=== PATIENT | female | born 1945 | race Caucasian/White ===

== ENCOUNTER 2016-08-20 15:27 | Inpatient (IN) | payer MEDICARE ==
[~2016-08-20] VITALS: Ht 160 cm; Wt 63.8 kg
[2016-08-20] MEDS ORDERED: BACTRIM DS TABL1 TAB PO (15:59)
[2016-08-20] MEDS ORDERED: OXYBUTYNIN15 MG/BOTT PO (15:59)
[2016-08-20] MEDS ORDERED: LOPRESSOR25 MG PO (16:00)
[2016-08-20 16:54] LABS: BASOPHILS 0.2 % (0.0-2.0); EOSINOPHILS 0.2 % (0-7); HEMOGLOBIN 10.9 g/dL (12-16); IMMATURE GRANULOCYTES 2.4 % (0-5); LYMPHOCYTES 9.8 % (15-50); MCH 29.5 pg (26.0-34.0); MCHC 32.1 g/dL (31.0-37.0); MCV 92.1 fL (80.0-100.0); MEAN PLATELET VOLUME 8.8 fL (7.4-10.4); MONOCYTES 1.6 % (2-11); NEUTROPHILS 85.8 % (40-80); RBC 3.69 10x6/uL (4.00-5.40); RDW 14.3 % (11.5-14.5)
[2016-08-20 17:03] LABS: PLATELET COUNT 344 10x3/uL (130-400)
[2016-08-20 17:36] LABS: ALBUMIN 3.5 g/dL (3.4-5.0); ANION GAP 17.8 mmol/L (8-16); BILIRUBIN - TOTAL 0.17 mg/dL (0.2-1.3); CALCIUM 10.6 mg/dL (8.5-10.1); CARBON DIOXIDE 22.4 mmol/L (21.0-32.0); CREATININE - SERUM 3.4 mg/dL (0.6-1.3); PROTEIN - SERUM 7.6 g/dL (6.4-8.2)
[2016-08-20 17:39] LABS: POTASSIUM - SERUM 7.2 mmol/L (3.5-5.1)
--- NOTE | 2016-08-20 17:57 | NUR ---
RECEIVED [facility] OF [facility] 30GM FROM DR. MOHAN FOR K+ LEVEL OF 7.2. WILL CONTINUE TO [facility].
--- NOTE | 2016-08-20 19:30 | NUR ---
ASSESSMENT COMPLETE, DENIES NEEDS AT THIS TIME. HOB UP SR UP X2, C/L IN REACH. RT ARM IV SITE W/O R/SNOTED.ALERT AND ORIENTED X3, RESP UNLAB . NOT WEARING SCDS AT THIS TIME. CONTINUE TO MONITOR.
[2016-08-20 19:56] VITALS: BP 148/79
[2016-08-20 22:29] LABS: APPEARANCE HAZY (CLEAR); COLOR YELLOW (YELLOW)
[2016-08-20 22:30] LABS: BILIRUBIN NEGATIVE (NEGATIVE); GLUCOSE NEGATIVE (NEGATIVE); KETONE NEGATIVE (NEGATIVE); LEUKOCYTE ESTERASE 2+ (NEGATIVE); NITRITE NEGATIVE (NEGATIVE); PROTEIN TRACE mg/dL (NEGATIVE); UROBILINOGEN NORMAL (NORMAL)
[2016-08-20 22:32] LABS: EPITHELIAL CELLS 0-5 /hpf (0-5)
[2016-08-20 22:33] LABS: BACTERIA FEW /hpf (NONE SEEN); WHITE CELLS - URINE 25-50 /hpf (0-5)
[2016-08-21 01:31] VITALS: BP 142/76
[2016-08-21 04:40] VITALS: BP 116/58
[2016-08-21 07:42] LABS: ALBUMIN 3.1 g/dL (3.4-5.0); ANION GAP 14.4 mmol/L (8-16); BILIRUBIN - TOTAL 0.2 mg/dL (0.2-1.3); CALCIUM 9.5 mg/dL (8.5-10.1); CARBON DIOXIDE 23.2 mmol/L (21.0-32.0); CREATININE - SERUM 3.2 mg/dL (0.6-1.3); POTASSIUM - SERUM 4.6 mmol/L (3.5-5.1); PROTEIN - SERUM 7.6 g/dL (6.4-8.2)
[2016-08-21 08:22] VITALS: BP 156/65
--- NOTE | 2016-08-21 09:27 | NUR ---
PT IS ALERT. ASSESSMENT DONE PER FLOWSHEET. NO OTHER NEEDS AT THIS TIME. WILL CONTINUE TO MONTIOR.
[2016-08-21 10:44] VITALS: Ht 160 cm; Wt 63.8 kg
[2016-08-21 11:00] VITALS: BP 158/74
--- NOTE | 2016-08-21 12:46 | NUR ---
NO SS OF DISTRESS AT THIS TIME. WILL CONTINUE TO MONITOR.
--- NOTE | 2016-08-21 15:16 | NUR ---
Patient Name: TONYA LEON Admission Status: Elective Accout number: [id number] Admission Date: 08-20-2016 : 1945 Admission Diagnosis: Attending: VITALIY Current LOS: 1 Anticipated DC Date: Planned Disposition: Home Primary Insurance: MEDICARE A & B Discharge Planning Comments: * Is the patient Alert and Oriented? Yes 0 * How many steps to enter\exit or inside your home? ELEVATOR 0 * PCP DR. MOHAN 0 * Pharmacy [facility] 0 * Preadmission Environment Home Alone 0 * ADLs Independent 0 * Equipment None 0 * Other Equipment NO MEDICAL EQUIPMENT PROVIDER PREFERENCE 0 * List name and contact numbers for known caregivers / representatives who currently or will assist patient after discharge: BARRY BARKER, FRIEND WHO PT CONSIDERS TO BE HER MOTHER, 0 * Community resources currently utilized None 0 * Please name any agencies selected above. NONE 0 * Additional services required to return to the preadmission environment? No 0 * Can the patient safely return to the preadmission environment? Yes 0 * Has this patient been hospitalized within the prior 30 days at any hospital? No 0 CM MET WITH PT IN ROOM TO DISCUSS DISCHARGE PLANNING AND NEEDS. PT REPORTS LIVING AT HOME INDEPENDENTLY AND ALONE. PT HAS NO MEDICAL EQUIPMENT AND NO OUTSIDE SERVICES ASSISTING IN THE HOME. PT NORMALLY USES [employer] FOR MEDICAL APPOINTMENTS. CM DISCUSSED AVAILABILITY OF HOME HEALTH, REHAB SERVICES AND MEDICAL EQUIPMENT. PT DENIES DISCHARGE NEEDS, REPORTS SHE DOES NOT WANT CM TO CALL [facility] FOR DISCHARGE HOME AND WILL TAKE A TAXI HOME AT DISCHARGE HOME. Director Prison: Brennon Warner
--- NOTE | 2016-08-21 15:28 | NUR ---
PT RETAINING OVER 150 CC'S OF URINE PER BLADDER SCAN. PRO PLACED PER DR LAYNE WILL CONTINUE TO MONITOR.
[2016-08-21 15:59] LABS: CREATININE - URINE 30.2 mg/dL (30-125); POTASSIUM - URINE 8.6 MMOL/L (12.0-62.0); PRO/CRE RATIO URINE 1.9 mg/g; PROTEIN - URINE 58.5 mg/dL (0.0-11.9)
[2016-08-21 16:00] VITALS: BP 164/73
[2016-08-21 19:41] VITALS: BP 145/68
--- NOTE | 2016-08-21 23:45 | NUR ---
PATIENT SITTING UP IN BED. ALERT AND ORIENTED. I.V. PATENT, PRO CATHETER IN PLACE. ASSESSMENT COMPLETED PERFLOW SHEET. BED IN LOW POSITION, CALL LIGHT WITHIN REACH. CONTINUE TO MONITOR
[2016-08-22] VITALS (9 sets, daily range): BP systolic 138–189; BP diastolic 66–83
[2016-08-22 04:17] LABS: ANION GAP 11.4 mmol/L (8-16); CALCIUM 8.7 mg/dL (8.5-10.1); CARBON DIOXIDE 23.7 mmol/L (21.0-32.0); CREATININE - SERUM 2.6 mg/dL (0.6-1.3); POTASSIUM - SERUM 5.1 mmol/L (3.5-5.1)
--- NOTE | 2016-08-22 07:00 | NUR ---
Pt. was received at the beginning of this shift in bed awake and oriented x 3. Denied any needs and/or concerns. Vital signs: Temp. 97.7, pulse 68, resp. 18, b/p 164/83, 02Sat. 98%. Pt. has a weir catheter that is patent and draining yellow urine. Rt. side of chest infusaport with NS going per pump at 100cc's/hr. Stable condition observed. Will be monitoring frequently and assisting prn with adl's. Call light is in reach.
--- NOTE | 2016-08-22 12:00 | NUR ---
Pt. continues to be stable. New order received for US of the Kidneys. No complaints to staff. Will continue to monitor.
--- NOTE | 2016-08-22 17:18 | NUR ---
Pt is sitting practically in the dark with a dim light on. She prefers to eat her supper like this and doesn't want any lights turned on. No signs of any discomfort or distress. IV fluid infusing through rt. infusaport via pump at prescribed rate of flow with no difficulty. Continuing to monitor.
[2016-08-23 00:15] VITALS: BP 152/72
[2016-08-23 04:20] VITALS: BP 148/72
[2016-08-23 05:56] LABS: ANION GAP 15.1 mmol/L (8-16); CALCIUM 8.6 mg/dL (8.5-10.1); CARBON DIOXIDE 19.6 mmol/L (21.0-32.0); CREATININE - SERUM 2.2 mg/dL (0.6-1.3); POTASSIUM - SERUM 4.7 mmol/L (3.5-5.1)
--- NOTE | 2016-08-23 07:23 | NUR ---
RECEIVED PT REPORT. WILL CONTINUE PLAN OF CARE. NO OTHER NEEDS AT THIS TIME. WILL CONTINUE TO MONITOR.
[2016-08-23 08:39] VITALS: BP 167/86
--- NOTE | 2016-08-23 10:26 | NUR ---
PT IS ALERT. ASSESSMENT DONE PER FLOWSHEET. NO OTHER NEEDS AT THIS TIME. WILL CONTINUE TO MONTIOR.
[2016-08-23 12:22] VITALS: BP 169/75
--- NOTE | 2016-08-23 13:49 | NUR ---
NO SS OF DISTRESS WILL CONTINUE TO MONITOR.
--- NOTE | 2016-08-23 15:40 | NUR ---
REMOVED PRO PER ORDER OF DR. LAYNE
[2016-08-23 16:20] VITALS: BP 150/108
--- NOTE | 2016-08-23 19:25 | NUR ---
PT. IN BED LYING ON HER RIGHT SIDE WITH HOB UP FOR COMFORT AND IS WATCHING TV. PT. REQUESTING SOMETHING FOR THE NUMBNESS/TINGLING PAIN IN HER FEET. INFORMED PT. SHE COULD HAVE ES TYLENOL AND PT. AGREED. ASSESSMENT COMPLETED. PT. STATED SHE WAS GOING TO GET TO GO HOME IN THE MORNING. CALL LIGHT WITHIN REACH.
[2016-08-23 20:02] VITALS: BP 169/76
--- NOTE | 2016-08-23 22:02 | NUR ---
PT. IN BED WITH HOB UP FOR COMFORT AND IS WATCHING TV. NO VOICED NEEDS AT THIS TIME. IV INFUSING VIA PUMP WITHOUT ALARMS OF NS AT 100CC/HR. CALL LIGHT WITHIN REACH.
--- NOTE | 2016-08-24 00:06 | NUR ---
PT. IN BED WITH HOB UP FOR COMFORT LYING ON HER RIGHT SIDE WITH EYES CLOSED AND RESP. EVEN. IV OF NS AT 100/HR VIA PUMP TO RIGHT UPPER CHEST WALL INFUSAPORT WITHOUT ANY ALARMS. CALL LIGHT WITHIN REACH.
[2016-08-24 00:14] VITALS: BP 152/69
--- NOTE | 2016-08-24 02:02 | NUR ---
NEW IV FLUID BAG OF NS UP FOR INFUSION AT 100/HR VIA PUMP TO RIGHT INFUSAPORT SITE WITHOUT ANY PROBLEMS. PT. AWAKE AND DENIES ANY NEEDS AT THIS TIME. CALL LIGHT WITHIN REACH.
--- NOTE | 2016-08-24 04:04 | NUR ---
PT. IN BED WITH HOB UP FOR COMFORT ANY LYING ON HER LEFT SIDE WITH EYES CLOSED AND RESP. EVEN. IV OF NS VIA PUMP INFUSING VIA RIGHT CHEST WALL INFUSAPORT AT 100/HR WITHOIUT ANY ALARMS. CALL LIGHT WITHIN REACH.
[2016-08-24 04:13] VITALS: BP 171/87
[2016-08-24 06:24] LABS: ANION GAP 13.5 mmol/L (8-16); CALCIUM 8.6 mg/dL (8.5-10.1); CARBON DIOXIDE 21.4 mmol/L (21.0-32.0); CREATININE - SERUM 2.1 mg/dL (0.6-1.3); POTASSIUM - SERUM 4.9 mmol/L (3.5-5.1)
--- NOTE | 2016-08-24 06:58 | NUR ---
RECEIVED PT REPORT. WILL CONTINUE PLAN OF CARE. NO OTHER NEEDS AT THIS TIME. WILL CONTINUE TO MONITOR.
[2016-08-24 08:00] VITALS: BP 181/97
--- NOTE | 2016-08-24 10:35 | NUR ---
PT IS ALERT. ASSESSMENT DONE PER FLOWSHEET. NO OTHER NEEDS AT THIS TIME. WILL CONTINUE TO MONTIOR.
[2016-08-24 11:53] VITALS: BP 172/78
--- NOTE | 2016-08-24 12:46 | NUR ---
DC TEACHING COMPLETE. IV REMOVED FROM IP
== END 2016-08-24 12:46 | disposition home or self-care (01) | DRG 683 ==
LOC: D.M2 15:27
PROVIDERS: Internal Medicine; ADMIT Legal Medicine
DX: N17.9 Acute kidney failure, unspecified (principal); N39.0 Urinary tract infection, site not specified; C53.9 Malignant neoplasm of cervix uteri, unspecified; N13.30 Unspecified hydronephrosis; E87.5 Hyperkalemia; I12.9 Hypertensive chronic kidney disease with stage 1 through stage 4 chronic kidney disease, or unspecified chronic kidney disease; N18.9 Chronic kidney disease, unspecified; Z87.891 Personal history of nicotine dependence

== ENCOUNTER → 2016-10-21 09:42 | Outpatient (CLI) | payer MEDICARE ==
[2016-08-21 10:44] VITALS: BMI 24.0
[~2016-10-21 09:42] MED LIST: BACTRIM DS TABL1 TAB PO; LOPRESSOR25 MG PO; OXYBUTYNIN15 MG/BOTT PO
== END | disposition home or self-care (01) ==
LOC: D.CT 09:42
DX: C53.1 Malignant neoplasm of exocervix (principal)

== ENCOUNTER 2017-01-24 15:20 | Emergency (ER) | payer MEDICARE ==
[2016-08-21 10:44] VITALS: BMI 24.0
[2017-01-24 16:30] LABS: BASOPHILS 0.2 % (0-2); EOSINOPHILS 1.8 % (0-7); HEMATOCRIT 31.1 % (36.0-48.0); HEMOGLOBIN 10.1 g/dL (12-16); IMMATURE GRANULOCYTES 0.7 % (0-5); LYMPHOCYTES 9.8 % (15-50); MCH 28.7 pg (26.0-34.0); MCHC 32.5 g/dL (31.0-37.0); MCV 88.4 fL (80.0-100.0); MEAN PLATELET VOLUME 8.3 fL (7.4-10.4); MONOCYTES 7.8 % (2-11); NEUTROPHILS 79.7 % (40-80); PLATELET COUNT 411 10x3/uL (130-400); RBC 3.52 10x6/uL (4.00-5.40); RDW 13.9 % (11.5-14.5); WBC 14.7 10x3/uL (4.8-10.8)
[2017-01-24 16:46] LABS: ALBUMIN 3.5 g/dL (3.4-5.0); ANION GAP 16.6 mmol/L (8-16); BILIRUBIN - TOTAL 0.22 mg/dL (0.2-1.3); CALCIUM 10.9 mg/dL (8.5-10.1); CARBON DIOXIDE 22.8 mmol/L (21.0-32.0); CREATININE - SERUM 2.7 mg/dL (0.6-1.3); POTASSIUM - SERUM 4.4 mmol/L (3.5-5.1); PROTEIN - SERUM 8.8 g/dL (6.4-8.2)
[2017-01-24 17:03] LABS: COLOR RED (YELLOW)
[2017-01-24 17:04] LABS: APPEARANCE BLOODY (CLEAR); BILIRUBIN NEGATIVE (NEGATIVE); GLUCOSE NEGATIVE (NEGATIVE); KETONE NEGATIVE (NEGATIVE); LEUKOCYTE ESTERASE 2+ (NEGATIVE); NITRITE POSITIVE (NEGATIVE); PROTEIN 2+ mg/dL (NEGATIVE); SPECIFIC GRAVITY 1.015 (1.005-1.020); UROBILINOGEN NORMAL (NORMAL)
[2017-01-24 17:06] LABS: RED CELLS - URINE >50 /hpf (0-5); WHITE CELLS - URINE 0-5 /hpf (0-5)
[2017-01-24 17:07] LABS: BACTERIA FEW /hpf (NONE SEEN); EPITHELIAL CELLS 0-5 /hpf (0-5)
== END 2017-01-24 20:32 | disposition home or self-care (01) ==
LOC: D.ER 15:20
PROVIDERS: Emergency Medicine
DX: N39.0 Urinary tract infection, site not specified (principal); R30.0 Dysuria; R31.9 Hematuria, unspecified; N18.9 Chronic kidney disease, unspecified

== ENCOUNTER 2017-01-29 10:05 | Inpatient (IN) | payer MEDICARE, MEDICAID ==
[~2017-01-29] VITALS: Ht 160 cm; Wt 63.5 kg
[2017-01-29 10:57] LABS: ALBUMIN 3.3 g/dL (3.4-5.0); BILIRUBIN - TOTAL 0.25 mg/dL (0.2-1.3); CALCIUM 10.1 mg/dL (8.5-10.1); CARBON DIOXIDE 22.2 mmol/L (21.0-32.0); CREATININE - SERUM 2.5 mg/dL (0.6-1.3); POTASSIUM - SERUM 4.2 mmol/L (3.5-5.1); PROTEIN - SERUM 8.4 g/dL (6.4-8.2)
[2017-01-29 11:10] LABS: BASOPHILS 0.1 % (0-2); EOSINOPHILS 0.9 % (0-7); HEMATOCRIT 29.4 % (36.0-48.0); HEMOGLOBIN 9.5 g/dL (12-16); IMMATURE GRANULOCYTES 0.7 % (0-5); LYMPHOCYTES 7.5 % (15-50); MCH 28.1 pg (26.0-34.0); MCHC 32.3 g/dL (31.0-37.0); MEAN PLATELET VOLUME 8.3 fL (7.4-10.4); MONOCYTES 6.2 % (2-11); NEUTROPHILS 84.6 % (40-80); PLATELET COUNT 507 10x3/uL (130-400); RBC 3.38 10x6/uL (4.00-5.40); RDW 13.8 % (11.5-14.5)
[2017-01-29 11:52] LABS: APPEARANCE TURBID (CLEAR); BACTERIA FEW /hpf (NONE SEEN); BILIRUBIN NEGATIVE (NEGATIVE); COLOR RED (YELLOW); EPITHELIAL CELLS 0-5 /hpf (0-5); GLUCOSE NEGATIVE (NEGATIVE); KETONE NEGATIVE (NEGATIVE); LEUKOCYTE ESTERASE 2+ (NEGATIVE); MUCUS <1+ /lpf (NONE SEEN); NITRITE NEGATIVE (NEGATIVE); PROTEIN 2+ mg/dL (NEGATIVE); RED CELLS - URINE >50 /hpf (0-5); UROBILINOGEN NORMAL (NORMAL)
[2017-01-29] MEDS ORDERED: OXYBUTYNIN15 MG/BOTT PO (13:35)
[2017-01-29] MEDS ORDERED: BACTRIM DS TABL1 TAB PO (13:35)
[2017-01-29] MEDS ORDERED: LOPRESSOR25 MG PO (13:35)
[2017-01-29] MEDS ORDERED: FISH OIL 1,0001 CA1 PO (13:36)
[2017-01-29 15:45] VITALS: BP 166/82
[2017-01-29 16:35] VITALS: BP 166/66; BMI 24.8
[2017-01-29 20:00] VITALS: BP 136/73
[2017-01-30] VITALS: BP 141/71
--- NOTE | 2017-01-30 03:35 | NUR ---
ASSESSED AT THE BEGINNING OF THE SHIFT. PT IS ALERT AND ORIENTED, ABLE TO VERBALIZE NEEDS. SHE HAS BEEN VERY QUIET AND UP AD DUKE TO THE BATHROOM. NO COMPLAINTS HAVE BEEN VOICED OR DISTRESS NOTED. RESPIRATIONS ARE EASY AND NO COMPLAINTS HAVE BEEN VOICED. THE BED IS LOW, RAILS UP X'S 2 WITH THE CALL LIGHT AT HAND.
[2017-01-30 04:00] VITALS: BP 168/77
--- NOTE | 2017-01-30 07:15 | NUR ---
REPORT RECIEVED ASSUMED CARE. PATIENT IN BED WITH IV INTACT. NO COMPLAINTS. CALL LIGHT WITHIN REACH.
[2017-01-30 08:32] VITALS: BP 123/72
[2017-01-30 12:38] VITALS: BP 125/68
[2017-01-30 14:39] VITALS: Ht 160 cm; Wt 63.5 kg
[2017-01-30 16:12] VITALS: BP 104/59
--- NOTE | 2017-01-30 18:50 | NUR ---
PATIENT IN BED WITH IV INFUSING AT THIS TIME. NO COMPLAINTS. CALL LIGHT WITHIN REACH.
[2017-01-30 20:00] VITALS: BP 123/72
[2017-01-31] VITALS: BP 96/63
[2017-01-31 04:00] VITALS: BP 146/61
[2017-01-31 06:44] LABS: BASOPHILS 0.2 % (0-2); EOSINOPHILS 3.5 % (0-7); HEMOGLOBIN 7.9 g/dL (12-16); IMMATURE GRANULOCYTES 0.4 % (0-5); LYMPHOCYTES 8.7 % (15-50); MCH 28.6 pg (26.0-34.0); MCHC 32.9 g/dL (31.0-37.0); MEAN PLATELET VOLUME 8.2 fL (7.4-10.4); NEUTROPHILS 76.2 % (40-80); PLATELET COUNT 445 10x3/uL (130-400); RBC 2.76 10x6/uL (4.00-5.40); RDW 14.5 % (11.5-14.5)
--- NOTE | 2017-01-31 07:15 | NUR ---
REPORT RECIEVED, PT CARE ASSUMED. PT RESTING AT THIS TIME, NO COMPLAINTS. L AC IV INTACT. SIDE RAILS UP X 2, CALL LIGHT WITHIN REACH.
[2017-01-31 07:17] LABS: ALBUMIN 2.5 g/dL (3.4-5.0); ANION GAP 13.5 mmol/L (8-16); BILIRUBIN - TOTAL 0.22 mg/dL (0.2-1.3); CALCIUM 9.1 mg/dL (8.5-10.1); CARBON DIOXIDE 23.6 mmol/L (21.0-32.0); CREATININE - SERUM 2.3 mg/dL (0.6-1.3); POTASSIUM - SERUM 4.1 mmol/L (3.5-5.1); PROTEIN - SERUM 6.7 g/dL (6.4-8.2)
[2017-01-31 07:48] VITALS: BP 112/67
--- NOTE | 2017-01-31 09:36 | NUR ---
PT L AC IV CAME OUT, CATHETER IN TACT. RE-SITED TO R FOREARM X 2 STICKS. PT TOLERATED WITH MINIMAL AMOUNT OF PAIN. PATENT, IV FLUIDS RESTARTED. CALL LIGHT WITHIN REACH.
[2017-01-31 11:47] VITALS: BP 119/50
--- NOTE | 2017-01-31 15:15 | NUR ---
BLOOD TRANSFUSION STARTED AT THIS TIME. IV INTACT. VITAL SIGNS STABLE. PT HAS NO COMPLAINTS OR PROBLEMS NOTED. CALL LIGHT WITHIN REACH. WILL MONITOR FOR 15 MINUTES.
--- NOTE | 2017-01-31 15:30 | NUR ---
PT TOLERATING BLOOD TRANSFUSION. VITAL SIGNS STABLE. NO SIGNS OF RASH, FEVER OR CHANGE IN VITAL SIGNS. IV INTACT. CALL LIGHT WITHIN REACH. WILL CONTINUE TO MONITOR.
--- NOTE | 2017-01-31 17:40 | NUR ---
1 UNIT PRBC TRANSFUSED. VITALS STABLE. PT TOLERATED WELL. IV INTACT. CALL LIGHT WITHIN REACH.
--- NOTE | 2017-01-31 18:00 | NUR ---
IN ROOM WITH PT. 2ND UNIT PRBC TRANSFUSING AT THIS TIME. IV IN TACT. PT TOLERATING WELL. WILL MONITOR FOR 15 MINUTES.
--- NOTE | 2017-01-31 18:32 | NUR ---
PT TOLERATING BLOOD TRANSFUION, NO COMPLAINTS AT THIS TIME. VITAL SIGNS STABLE. IV INTACT. CALL LIGHT WITHIN REACH.
--- NOTE | 2017-01-31 18:41 | NUR ---
ORDER FOR TYLENOL 500MG 1-2 PO Q6H PRN PAIN RECIEVED FROM [facility] PER DR. MOHAN. ORDERED.
--- NOTE | 2017-01-31 19:12 | NUR ---
PT TOLERATING BLOOD INFUSION. IV INTACT. PT C/O PAIN 4/10 IN LOWER BACK "FROM LAYING IN THIS BED." 1000MG TYLENOL GIVEN ORDERED. CALL LIGHT WITHIN REACH.
[2017-02-01 04:00] VITALS: BP 158/50
--- NOTE | 2017-02-01 07:20 | NUR ---
REPORT RECIEVED, CARE ASSUMED. PT DOING WELL, RESTING WITH NO COMPLAINTS. VITALS STABLE. CALL LIGHT WITHIN REACH.
[2017-02-01 08:06] VITALS: BP 105/48
--- NOTE | 2017-02-01 10:15 | NUR ---
PT RESTING IN ROOM. NO COMPLAINTS. IV INTACT, R INFUSAPORT. D5NS RUNNING AT 100ML/HR ORDERED. CALL LIGHT WITHIN REACH.
[2017-02-01 14:08] VITALS: BP 120/84
--- NOTE | 2017-02-01 17:33 | NUR ---
PT C/O PAIN IN LOWER BACK "FROM LAYING HERE IN THIS BED." PRN MORPHINE GIVEN ORDERED. PT RESTING IN ROOM. CALL LIGHT WITHIN REACH.
--- NOTE | 2017-02-01 18:28 | NUR ---
PT RESTING IN ROOM, WATCHING TV. IV INTACT, FLUIDS RUNNING ORDERED. NO COMPLAINTS AT THIS TIME. CALL LIGHT WITHIN REACH, BED LOW, SIDE RAILS UP X 2.
[2017-02-01 19:00] VITALS: BP 145/103
--- NOTE | 2017-02-01 19:30 | NUR ---
REC'D LYING IN BED. NO DISTRESS NOTED. DENIED PAIN AT THIS TIME. DENIED FURTHER NEEDS AT THIS TIME. WILL ADMIN PM/AM MEDS PRESCRIBED. INSTRUCTED TO CALL IF NEEDED ANYTHING. VERBALIZED UNDERSTANDING. BED LOW, LOCKED, CALL LIGHT IN REACH.
--- NOTE | 2017-02-01 22:30 | NUR ---
WAS GOING TO THE BATHROOM AND REPORTED BLOOD STARTED TO COME OUT. I CHECKED HER AND BLOOD WAS COMING FROM VAGINA, NO LACERATIONS OR CUTS, COMING FROM WITHIN. CLEAN HER AND ROOM UP. CALLED DR. KIMBERLEE SALAS RN. KALIA GONZALEZ APRN CALLED BACK AND STATED "IF THE EPISODE HAPPENS AGAIN TO GET A CBC IF NOT WAIT UNTIL THE AM CHECK" WILL CONT TO MONITOR THROUGHOUT NIGHT.
[2017-02-02] VITALS: BP 124/68
--- NOTE | 2017-02-02 01:21 | NUR ---
PT AWAKE; NO DISTRESS NOTED. WILL CONTINUE TO MONITOR.
[2017-02-02 04:00] VITALS: BP 128/69
--- NOTE | 2017-02-02 05:06 | NUR ---
RESTING WELL. HASNT HAD ANOTHER BLEEDING EPISODE SINCE EALIER IN THE NIGHT. NO DISTRESS NOTED. WILL CONT TO MONITOR. BED LOW, LOCKED, CALL LIGHT IN REACH.
--- NOTE | 2017-02-02 07:30 | NUR ---
RECIEVED PT DURING WALKING ROUNDS. PT RESTING IN BED WITH NO COMPLAINTS OF PAIN OR DISCOMFORT AT THIS TIME. ASSESSMENT DONE PER FLOWSHEET. BED IN LOW POSITION AND CALL LIGHT MARISAIN REACH. WILL CONTINUE TO MONITOR.
[2017-02-02 08:24] VITALS: BP 125/66
[2017-02-02 08:55] LABS: BASOPHILS 0.2 % (0-2); EOSINOPHILS 3.9 % (0-7); HEMATOCRIT 29.7 % (36.0-48.0); HEMOGLOBIN 9.7 g/dL (12-16); IMMATURE GRANULOCYTES 0.5 % (0-5); LYMPHOCYTES 8.7 % (15-50); MCH 28.9 pg (26.0-34.0); MCHC 32.7 g/dL (31.0-37.0); MCV 88.4 fL (80.0-100.0); MEAN PLATELET VOLUME 8.1 fL (7.4-10.4); NEUTROPHILS 75.7 % (40-80); PLATELET COUNT 385 10x3/uL (130-400); RBC 3.36 10x6/uL (4.00-5.40); RDW 15.1 % (11.5-14.5); WBC 13.1 10x3/uL (4.8-10.8)
[2017-02-02 09:24] LABS: ALBUMIN 2.3 g/dL (3.4-5.0); ANION GAP 14.3 mmol/L (8-16); BILIRUBIN - TOTAL 0.31 mg/dL (0.2-1.3); CALCIUM 8.7 mg/dL (8.5-10.1); CARBON DIOXIDE 22.3 mmol/L (21.0-32.0); POTASSIUM - SERUM 4.6 mmol/L (3.5-5.1)
--- NOTE | 2017-02-02 10:20 | NUR ---
RECEIVED TELEPHONE ORDERS FROM DR. MOHAN FOR A BUFFET SERVER CONSULT DUE TO VAGINAL BLEEDING. WILL PLACE ORDER AT THIS TIME. PT RESTING IN BED WITH NO COMPLAINTS OF PAIN, WILL CONTINUE TO MONITOR.
[2017-02-02 12:24] VITALS: BP 111/67
--- NOTE | 2017-02-02 13:50 | NUR ---
PORT DRESSING CHANGED BY LUKE PENA AT THIS TIME USING STERILE TECHNIQUE
--- NOTE | 2017-02-02 15:49 | NUR ---
Patient Name: TONYA LEON Admission Status: ER Accout number: [id number] Admission Date: 01-29-2017 : 1945 Admission Diagnosis:URINARY TRACT INFECTION, SITE NOT SPECIFIED Attending: VITALIY Current LOS: 4 Anticipated DC Date: 02-05-2017 Planned Disposition: Home Primary Insurance: [facility] Discharge Planning Comments: CM MET WITH PATIENT REGARDING D/C NEEDS AND PLANS. PATIENT STATED SHE LIVES ALONE BUT HAS SEVERAL FRIENDS IN [place]. PATIENTS FRIEND (AMADEO) WILL DRIVE HER HOME AT DISCHARGE. PATIENTS PCP IS DR. MOHAN AND PHARMACY IS [facility]. PATIENT STATED SHE IS INDEPENDENT AND HAS NO DME AT HOME. PATIENT REFUSED HOME HEALTH AT DISCHARGE AND HAS NO OTHER NEEDS AT THIS TIME FOR DISCHARGE. PCP DR[facility]IMBER[facility]E [facility]- [phone] AMADEO (FRIEND) [phone] Ob Scrub Tech: Michelle Hampton Is the patient Alert and Oriented? Yes 0 * How many steps to enter\exit or inside your home? ELEVATOR 0 * PCP DR. MOHAN 0 * Pharmacy [facility] 0 * Preadmission Environment Home Alone 0 * ADLs Independent 0 * Equipment None 0 * List name and contact numbers for known caregivers / representatives who currently or will assist patient after discharge: AMADEO RUSSELL (FRIEND) [phone] 0 * Community resources currently utilized None 0 * Additional services required to return to the preadmission environment? Yes 0 * Can the patient safely return to the preadmission environment? Yes 0 * Has this patient been hospitalized within the prior 30 days at any hospital? No 0 Grand Total: 0
--- NOTE | 2017-02-02 15:57 | NUR ---
NUTRITION MONITORING & EVAL CHART REVIEWED, PT VISIT. TOLERATING REG DIET, 10 TO 50% INTAKE RECENT MEALS. PT REPORTS IMPROVING PO INTAKE. WILL CONTINUE TO MONITOR INTAKE, HONOR FOOD PREFERENCES. RD FOLLOWING
[2017-02-02 16:13] VITALS: BP 168/80
[2017-02-02 19:00] VITALS: BP 161/78
--- NOTE | 2017-02-02 19:25 | NUR ---
RECIEVED SHIFT REPORT. PT IS LYING IN BED. ALERT AND ORIENTED AND ABLE TO VERBALIZE NEEDS. IV IS PATENT AND FLUIDS ARE RUNNING PER ORDER. PT IS AMBULATORY BUT WAS INSTRUCTED TO CALL FOR ANY ASSISTANCE NEEDED. PT STATES PAIN IS 2/10. NO NEEDS ARE VERBALIZED AT THIS TIME. WILL CONTINUE TO MONITOR. SIDE RAILS ARE UP X 2. BED IS IN LOWEST POSITION. CALL LIGHT IS WITHIN REACH.
--- NOTE | 2017-02-02 20:47 | NUR ---
SHIFT ASSESSMENT COMPLETED. PT C/O PAIN 09/12. ADMINISTERED PRESCRIBED PRN MORPHINE PER ORDER. DENIES FURTHER NEEDS. WILL MONITOR. SIDE RAILS X 2. BED LOW. CALL LIGHT IN REACH.
[2017-02-03] VITALS: BP 154/76
[2017-02-03 04:00] VITALS: BP 131/89
--- NOTE | 2017-02-03 07:15 | NUR ---
RECIEVED PT DURING WALKING ROUNDS. PT RESTING IN BED WITH NO COMPLAINTS OF PAIN OR DISCOMFORT AT THIS TIME. ASSESSMENT DONE PER FLOWSHEET. BED IN LOW POSITION AND CALL LIGHT WITHIN REACH. WILL CONTINUE TO MONITOR.
[2017-02-03 08:13] VITALS: BP 160/75
[2017-02-03] MEDS ORDERED: OXYBUTYNIN15 MG/BOTT PO (09:59)
[2017-02-03] MEDS ORDERED: BACTRIM DS TABL1 TAB PO (09:59)
[2017-02-03] MEDS ORDERED: FISH OIL 1,0001 CA1 PO (09:59)
--- NOTE | 2017-02-03 10:27 | NUR ---
PATIENT IS DISCHARGING HOME TODAY/FRIEND AMADEO DRIVING HER. PATIENT REFUSED HOME HEALTH AND DID NOT HAVE ANY OTHER NEEDS FOR DISCHARGE. D/C IMM SERVED AND SIGNED
--- NOTE | 2017-02-03 11:21 | NUR ---
DE-ACCESSED PORT PER PROCEDURE AT THIS TIME. PT TOLERATED WELL. DRESSING APPLIED.
[2017-02-03 11:35] VITALS: BP 154/79
--- NOTE | 2017-02-03 12:27 | NUR ---
PT DISCHARGED AT THIS TIME WITH A FRIEND.
== END 2017-02-03 12:28 | disposition home or self-care (01) | DRG 683 ==
LOC: D.ER 10:05 → D.MS 11:59
PROVIDERS: Emergency Medicine; ADMIT Legal Medicine
DX: N17.9 Acute kidney failure, unspecified (principal); E87.1 Hypo-osmolality and hyponatremia; R31.9 Hematuria, unspecified; D64.9 Anemia, unspecified; C54.9 Malignant neoplasm of corpus uteri, unspecified; N13.30 Unspecified hydronephrosis; N95.0 Postmenopausal bleeding; N10 Acute pyelonephritis; Z87.891 Personal history of nicotine dependence

== ENCOUNTER 2017-02-17 12:53 | Inpatient (IN) | payer MEDICARE, MEDICAID ==
[~2017-02-17] VITALS: Ht 160 cm; Wt 60.3 kg
--- NOTE | ~2017-02-17 | HEMODYNAMI ---
PATIENT:TONYA LEON MEDICAL RECORD: [id number] : 49 LOCATION: D.2220 ADMISSION DATE: 02/17/17 Generatedon:02/19/201710:41 Patient name: TONYA LEON Patient #: [id number] SSN: : 1945 Date of study: 02/19/2017 Page: Of Hemodynamic Procedure Report Patient Data Patient Demographics Procedure consent was obtained First Name: TONYA Gender: Female Last Name: CAROLYN : 1945 Patient #: [id number] Age: 71 year(s) Race: Unknown Additional ID: [id number] Contact details Address: [address] [place] [address] [address] State: [place] City: [facility] Zip code: [address] Admission Admission Data Admission Date: 02/17/2017 Admission Time: 12:53 Room #: D.2220 Procedure Procedure Types Cath Procedure Peripheral Cath Diagnostic Procedure Miscellaneous Procedure Description Procedure Date Procedure Date: 02/19/2017 Procedure Start Time: 9:10 Procedure Staff Name Function Pablo Junior RT Monitor Clem Eduardo MD Performing Physician Marianna Concepcion RT Scrub Francia Mcfadden RN Nurse Procedure Data Cath Procedure Fluoroscopy Diagnostic fluoroscopy Total fluoroscopy Time: time: 11.7 min 11.7 min Diagnostic fluoroscopy Total fluoroscopy dose: 158 dose: 158 mGy mGy Contrast Material Contrast Material Type Amount (ml) Isovue 300 45 Diagnostic catheters Device Type Used For End Catheter Placement Merit Impress KA2 5Fr 65CM catheter Procedure Medications Medication Administration Route Dosage Fentanyl I.V. 50 mcg Versed I.V. 1 mg Fentanyl I.V. 50 mcg Versed I.V. 1 mg Fentanyl I.V. 50 mcg Versed I.V. 1 mg Oxygen NC 3 l/min 0.9% NaCl I.V. Fentanyl I.V. 50 mcg Versed I.V. 1 mg unlisted medication I.V. 1 g Hemodynamics Rest Snapshots Pre Cath Intra NCS Post Cath Vital Signs Time Heart Resp SPO2 NIBP (mmHg) Rhythm Pain Sedation Rate (ipm) (%) Status Level (bpm) 8:53:40 108 15 97 184/143(168) NSR 7 (11) , 10(A) Very intense 8:56:30 96 14 100 190/104(151) NSR 7 (11) , 10(A) Very intense 9:01:30 94 15 100 Measuring NSR 7 (11) , 10(A) Very intense 9:02:04 98 17 99 182/102(149) NSR 7 (11) , 10(A) Very intense 9:06:29 84 14 100 166/89(138) NSR 7 (11) , 10(A) Very intense 9:10:49 85 15 100 164/88(132) NSR 7 (11) , 10(A) Very intense 9:15:50 87 14 100 168/85(133) NSR 6 (11) , 9(A) Intense 9:20:06 76 13 100 142/81(120) NSR 6 (11) , 9(A) Intense 9:24:22 79 13 100 137/79(105) NSR 3 (11) , 9(A) Tolerable 9:28:36 72 13 100 138/79(113) NSR 3 (11) , 9(A) Tolerable 9:32:52 75 14 100 145/72(118) NSR 0 (11) , 9(A) No pain 9:37:06 85 15 100 156/86(133) NSR 0 (11) , 9(A) No pain 9:41:28 78 15 100 141/74(116) NSR 0 (11) , 9(A) No pain 9:45:46 70 13 100 140/68(107) NSR 0 (11) , 9(A) No pain 9:49:56 81 16 159/90(121) NSR 0 (11) , 9(A) No pain 9:54:16 79 10 156/81(124) NSR 0 (11) , 9(A) No pain 9:58:38 73 12 137/73(111) NSR 0 (11) , 9(A) No pain 10:03:37 71 13 100 Measuring NSR 0 (11) , 9(A) No pain 10:03:52 13 100 159/79(129) NSR 0 (11) , 9(A) No pain 10:08:10 80 16 100 166/90(130) NSR 0 (11) , 9(A) No pain 10:12:30 82 13 100 166/90(134) NSR 0 (11) , 9(A) No pain 10:16:50 86 15 100 174/90(135) NSR 0 (11) , 9(A) No pain 10:21:14 91 13 100 177/89(141) NSR 0 (11) , 9(A) No pain 10:25:36 143 12 100 180/94(125) NSR 0 (11) , 9(A) No pain 10:29:36 No Cuff NSR 0 (11) , 9(A) No pain 10:33:36 No Cuff NSR 0 (11) , 9(A) No pain 10:37:35 No Cuff NSR 0 (11) , 9(A) No pain Medications Time Medication Route Dose Verified Delivered Reason Notes Effectivenes s by by 8:55:11 Oxygen NC 3 Francia Francia l/min Lesa Lesa RN RN 8:55:38 cefipime I.V. 1 g Francia Francia Lesa Lesa RN RN 8:55:51 0.9% NaCl I.V. KVO Farncia Francia Lesa Lesa RN RN 9:10:01 Fentanyl I.V. 50 Francia Francia for mcg Lesa Lesa sedation RN RN 9:10:12 Versed I.V. 1 mg Francia Francia for Lesa Lesa sedation RN RN 9:15:41 Fentanyl I.V. 50 Francia Francia for mcg Lesa Lesa sedation RN RN 9:15:55 Versed I.V. 1 mg Francia Francia for Lesa Lesa sedation RN RN 9:20:40 Fentanyl I.V. 50 Francia Francia for mcg Lesa Lesa sedation RN RN 9:30:50 Versed I.V. 1 mg Francia Francia for Lesa Lesa sedation RN RN 9:50:48 Fentanyl I.V. 50 Francia Francia for mcg Lesa Lesa sedation RN RN 9:50:55 Versed I.V. 1 mg Francia Francia for Lesa Lesa sedation RN forming acid dumper Log Time Note 8:39:21 Pablo Zapiendai RT (R) (CV) sent for patient. Start room use. 8:39:34 Time tracking: Regular hours 8:39:42 Plan of Care:Hemodynamics will remain stable., Cardiac rhythm will remain stable., Comfort level will be maintained., Respiratory function will remain adequate., Patient/ family verbilizes understanding of procedure., Procedure tolerated without complication., Recovers from procedure without complications.. 8:39:49 Patient received from Med/Surg to IR Alert and oriented. Tansferred to table in Prone position. 8:39:54 Warm blankets applied, and brigida hugger turned on for patient comfort. 8:39:56 Correct patient and procedure confirmed by team. 8:40:01 Signed procedure consent form obtained from patient. 8:40:05 Full Disclosure recording started 8:40:06 - 8:40:09 H&P Date Dictated: 02/19/2017 H&P Addendum completed by physician on day of procedure. (MUST COMPLETE FOR ALL OUTPATIENTS). 8:40:10 Pre-procedure instructions explained to patient. 8:40:11 Pre-op teaching completed and patient verbalized understanding. 8:40:13 Family unavailable. 8:40:15 Patient NPO since Midnight. 8:40:18 Is the patient allergic to Iodine/contrast media? No. 8:40:24 Is patient on blood thinner?No 8:40:26 Patient diabetic? No. 8:40:26 - 8:40:27 ----Pre-sedation anethsthesia assessment.---- 8:40:29 Previous problem with sedation/anesthesia? No ? 8:40:31 Snore? Yes 8:40:32 Sleep apnea? No 8:40:34 Deviated septum? No 8:40:35 Opens mouth fully? Yes 8:40:37 Sticks out tongue? Yes 8:40:42 Airway obstruction? No ? 8:40:49 Dentures? Yes partial out 8:40:51 - 8:41:02 Patient pain scale 0/10 no pain. 8:41:19 IV patent on arrival in port with 0.9% NaCl at KVO. 8:41:22 Sharps counted by scrub and verified by R.N. 8:41:23 Alarms reviewed by R. N. 8:48:41 Use device set IR Diagnostic 8:48:43 Sterile Angiographic Pack opened to sterile field. 8:48:44 Bag Decanter opened to sterile field. 8:51:10 ECG and BP/O2 sat monitors applied to patient. 8:51:10 Vital chart was started 8:51:12 Baseline sample Acquired. 8:51:13 Baseline sample Acquired. 8:55:11 Oxygen 3 l/min NC was administered by Francia Mcfadden RN; ; 8:55:38 cefipime 1 g I.V. was administered by Francia Mcfadden RN; ; 8:55:51 0.9% NaCl KVO I.V. was administered by Francia Mcfadden RN; ; 9:06:52 Physician arrived 9:06:53 --------ALL STOP TIME OUT------ 9:06:54 Final Timeout: patient, procedure, and site verified with staff and physician. All members of the team are in agreement. 9:07:02 Right abdomen site verified by team. 9:07:11 Left abdomen site verified by team. 9:07:16 Physical assessment completed. ASA score P 3 - A patient with severe systemic disease as per Pablo Junior RT (R) (CV). 9:07:20 Sedation plan: IV Moderate Sedation Versed, Fentanyl 9:10:01 Fentanyl 50 mcg I.V. was administered by Francia Mcfadden RN; for sedation; 9:10:12 Versed 1 mg I.V. was administered by Francia Mcfadden RN; for sedation; 9:10:39 Procedure started. 9:10:46 Local anesthetic to left flank area with Lidocaine 1% by Clem Eduardo MD.INITIAL ACCESS ONLY 9:15:41 Fentanyl 50 mcg I.V. was administered by Francia Mcfadden RN; for sedation; 9:15:55 Versed 1 mg I.V. was administered by Francia Mcfadden RN; for sedation; 9:16:22 KIT, INTRODUCER ACCUSTICK II W/C opened to sterile field. 9:16:23 BAG, DRAINAGE EMPTY 600ML W/GILL opened to sterile field. 9:16:23 BAG, DRAINAGE EMPTY 600ML W/GILL opened to sterile field. 9:16:24 CHIBA 20 X 15 needle opened to sterile field. 9:16:26 CHIBA 20 X 15 needle opened to sterile field. 9:20:40 Fentanyl 50 mcg I.V. was administered by Francia Mcfadden RN; for sedation; 9:23:44 Cook VITALULU .035 145 glide wire opened to sterile field. 9:26:22 A Expertcloud.de KA2 5Fr 65CM catheter was advanced over the wire and used for . 9:30:50 Versed 1 mg I.V. was administered by Francia Mcfadedn RN; for sedation; 9:33:14 DILATOR, VESSEL 10/20 opened to sterile field. 9:33:15 PEEL-A-WAY INTRODUCER 9FR. opened to sterile field. 9:33:22 [place] Sci 8FR.X 24CM Ureteral Stent opened to sterile field. 9:39:11 [place] Sci 8FR.X 24CM Ureteral Stent opened to sterile field. 9:39:19 PEEL-A-WAY INTRODUCER 9FR. opened to sterile field. 9:42:38 STOPCOCK 3-WAY LARGE BORE opened to sterile field. 9:42:38 STOPCOCK 3-WAY LARGE BORE opened to sterile field. 9:44:33 Cook CARLSON 180 guide wire opened to sterile field. 9:50:48 Fentanyl 50 mcg I.V. was administered by Francia Mcfadden RN; for sedation; 9:50:55 Versed 1 mg I.V. was administered by Francia Mcfadden RN; for sedation; 9:51:09 EV3 NITINOL .018 80CM guide wire opened to sterile field. 9:52:25 Local anesthetic to right flank area with Lidocaine 1% by Clem agarwal MD.ADDITIONAL ACCESS 9:59:05 [place] Sci 8FR.X 24CM Ureteral Stent opened to sterile field. 10:00:03 [place] Sci All Purpose 8Fr drainage catheter opened to sterile field. 10:00:04 [place] Sci All Purpose 8Fr drainage catheter opened to sterile field. 10:00:26 SUTURE ETHILON 2-0 BLK MONO FS opened to sterile field. 10:00:26 SUTURE ETHILON 2-0 BLK MONO FS opened to sterile field. 10:10:10 Procedure ended.(Physican Out) 10:11:23 Fluoroscopy time 11.70 minutes. 10:11:27 Fluoroscopy dose: 158 mGy 10:11:27 Flurop Dose total: 158 10:11:36 Contrast amount:Isovue 300 45ml. 10:11:38 Sharps counted by scrub and verified by R.N. 10:11:40 Insertion/operative site no bleeding no hematoma. 10:11:50 Post Abdominal area:stable 10:11:55 Post Abdominal area:stable 10:12:04 Post-procedure physical assessment completed. ASA score P 3 - A patient with severe systemic disease as per Clem Eduardo MD. 10:12:07 Post procedure rhythm: unchanged. 10:21:27 Post procedure instruction explained to patient.Patient verbalizes understanding. 10:21:29 Procedure and supply charges have been captured, reviewed, submitted an d are correct. 10:21:31 Report given to Med/Surg. 10:21:34 Patient transfered to Med/Surg with Bed. 10:41:07 Vital chart was stopped Device Usage Item Name Manufacture Quantity Catalog Hospital Part Current Minimal Lot# / Number Charge Number Stock Stock Serial# Code Naa Leiva 1 [id number] 5 Angiographic Health Pack Bag Decanter Microtek 1 [id number] [id number] 87523 286389 5 Medical Inc. KIT, [place] 1 [id number] 841633 973446 017389 5 INTRODUCER Scientific ACCUSTICK II W/C BAG, Merit 2 [id number] 070625 385529 080242 5 DRAINAGE Medical EMPTY 600ML W/GILL CHIBA 20 X [facility] 2 [id number] 697291 089203 5 [id number] 15 needle [id number] [facility] 1 L74397 003782 529852 5 [id number] ROADRUNNER .035 145 glide wire Merit Merit 1 [id number] 112357 991420 5 Impress KA2 Medical 5Fr 65CM catheter DILATOR, [facility] 1 [id number] 165105 96007 321785 5 [id number] VESSEL 04/24 PEEL-A-WAY [facility] 2 [id number] 749645 698904 832751 5 [id number] INTRODUCER [id number] 9FR. [place] Sci [place] 3 [id number] 218247 761379 305856 5 8FR.X 24CM Scientific Ureteral Stent STOPCOCK [facility] 2 M75014 101472 1515 960714 5 [id number] 3-WAY LARGE 6335613 BORE [facility] 1 U09516 593106 047016 5 [id number] 180 guide wire EV3 NITINOL Ev3 1 [id number] 878170 458139 5 .018 80CM guide wire [place] Sci [place] 2 [id number] 671751 171863 010535 5 All Purpose Scientific 8Fr drainage catheter SUTURE Ethicon 2 664H 366424 707506 5 ETHILON 2-0 BLK MONO FS Signature Audit [place] Stage Time Signature Unsigned Intra-Procedure 02/19/2017 Pablo 10:41:04 AM [place] RT (R) (CV) Signatures Monitor : Pablo Signature : [place] RT Date : Time : [facility] [address] [place] [address]
[~2017-02-17 12:53] MED LIST changes: +FISH OIL 1,0001 CA1 PO
--- NOTE | 2017-02-17 14:08 | NUR ---
RIGHT INFUSAPORT ACCESSED WITH 20GAX1 IN NEEDLE. ACCESSED EASILY-DOES NOT PULL BACK BLOOD-PT STATES NEVER HAS. FLUSHES EASILY. RAIL UP X 1 FOR SAFETY. CALL LIGHT IN REACH
[2017-02-17 17:22] VITALS: BP 127/66; BMI 23.6
[2017-02-17 18:37] LABS: APPEARANCE HAZY (CLEAR); BILIRUBIN NEGATIVE (NEGATIVE); GLUCOSE NEGATIVE (NEGATIVE); KETONE NEGATIVE (NEGATIVE); LEUKOCYTE ESTERASE 2+ (NEGATIVE); NITRITE NEGATIVE (NEGATIVE); PROTEIN 2+ mg/dL (NEGATIVE); SPECIFIC GRAVITY 1.015 (1.005-1.020); UROBILINOGEN NORMAL (NORMAL)
[2017-02-17 18:39] LABS: RED CELLS - URINE 0-5 /hpf (0-5); WHITE CELLS - URINE >50 /hpf (0-5)
[2017-02-17 18:41] LABS: BACTERIA FEW /hpf (NONE SEEN)
--- NOTE | 2017-02-17 19:30 | NUR ---
ENTERED ROOM WITH DR. LOVELACE PER HIS REQUEST WHILE HE PERFORMED EXAM. PATIENT REQUESTED PAIN MEDICATION. ASSURED THE PATIENT THAT I WOULD FIND OUT ABOUT HER PAIN MEDS AND ENCOURAGED HER TO CALL IF SHE HAS FURTHER NEEDS. BED IN LOWEST POSITION AND CALL LIGHT WITHIN REACH.
[2017-02-17 20:00] VITALS: BP 173/79
[2017-02-17 20:12] LABS: BASOPHILS 0.2 % (0-2); EOSINOPHILS 0.8 % (0-7); HEMATOCRIT 23.3 % (36.0-48.0); HEMOGLOBIN 7.6 g/dL (12-16); IMMATURE GRANULOCYTES 0.6 % (0-5); MCH 28.6 pg (26.0-34.0); MCHC 32.6 g/dL (31.0-37.0); MCV 87.6 fL (80.0-100.0); MONOCYTES 7.1 % (2-11); NEUTROPHILS 85.3 % (40-80); RBC 2.66 10x6/uL (4.00-5.40); RDW 14.7 % (11.5-14.5); WBC 16.1 10x3/uL (4.8-10.8)
[2017-02-17 20:13] LABS: PLATELET COUNT 531 10x3/uL (130-400)
[2017-02-17 20:21] LABS: ALBUMIN 2.7 g/dL (3.4-5.0); ANION GAP 12.9 mmol/L (8-16); BILIRUBIN - TOTAL 0.2 mg/dL (0.2-1.3); CALCIUM 11.5 mg/dL (8.5-10.1); CARBON DIOXIDE 24.9 mmol/L (21.0-32.0); POTASSIUM - SERUM 4.8 mmol/L (3.5-5.1); PROTEIN - SERUM 7.5 g/dL (6.4-8.2)
[2017-02-18] VITALS: BP 175/91
[2017-02-18 04:00] VITALS: BP 159/81
[2017-02-18] MEDS ORDERED: ULTRAM50 MG PO (04:52)
--- NOTE | 2017-02-18 07:50 | NUR ---
ASSESSMENT COMPLETE. R PORT PATENT. NS INFUSING AT 100 CC/HR VIA PUMP. NPO FOR PROCEDURE TODAY. COMPLAINING OF LOW BACK PAIN. DENIES ANY NEEDS AT THIS TIME.
[2017-02-18 08:53] VITALS: BP 157/80
--- NOTE | 2017-02-18 10:40 | NUR ---
OFF FLOOR TO OR VIA BED.
--- NOTE | 2017-02-18 12:00 | NUR ---
NOTIFIED BY DR GIRON THAT STENTS WERE UNABLE TO BE PLACED. SPOKE WITH RANDI IN SPECIALS. PATIENT WILL GO FOR NEPHROSTOMY TUBES LATER TODAY WHEN ABLE TO OBTAIN CONSENT.
[2017-02-18 12:38] VITALS: BP 147/88
--- NOTE | 2017-02-18 12:39 | NUR ---
RETURNED TO ROOM FROM RECOVERY ROOM. VSS. DROWSY BUT AWAKENS EASILY TO VERBAL STIMULI.
--- NOTE | 2017-02-18 12:50 | NUR ---
1ST UNIT PRBC INFUSION STARTED. VSS.
--- NOTE | 2017-02-18 13:14 | NUR ---
CM met with patient to assess discharge planning needs. Patient lives independently in the [facility]. Where she plans to return. She stated that her friend Carlin will be the one to drive her home at discharge. She has a shower bar in her shower,but that is all the DME items she has. She does not use HH and does not think she will need it at discharge. She states that her apartment is safe to return to. CM will contine to follow and assist as needed PCP: Eric Gonzalez on [address] ([phone])
[2017-02-18 14:38] VITALS: Ht 160 cm; Wt 60.3 kg
[2017-02-18 16:35] VITALS: BP 141/78
--- NOTE | 2017-02-18 16:40 | NUR ---
DR MOHAN HERE TO SEE PATIENT. 2ND UNIT PRBC INFUSION. VSS. DENIES ANY NEEDS AT THIS TIME.
--- NOTE | 2017-02-18 18:23 | NUR ---
RESTING QUIETLY IN BED AT THIS TIME. VSS. DENIES ANY NEEDS AT PRESENT.
--- NOTE | 2017-02-18 18:47 | OP ---
PATIENT NAME: TONYA LEON MEDICAL RECORD: [id number] :49 LOCATION:D.MS [id number] ADMISSION DATE:02/17/17 SURGEON: KEVON GIRON MD DATE OF OPERATION: 02/18/2017 SURGEON: Kevon Giron MD ANESTHESIA: General by Roman Pak CRNA. PREOPERATIVE DIAGNOSES: Cervical cancer with bilateral hydroureteronephrosis. PROCEDURES: Cystoscopy, bilateral ureteral stent removal, biopsy of the bladder. FINDINGS: Gross hematuria present. Multiple small white nodules present in the bladder. These were biopsied. Plastic ureteral stents in place. SPECIMENS: Ureteral stents times 2 and bladder biopsy. ESTIMATED BLOOD LOSS: Difficult to estimate. CLINICAL HISTORY: This is a 71-year-old female, who has a history of lymphoma as well as cervical cancer. The cervical cancer was treated 1 year ago with radiation and chemotherapy. In the interim, she was found to have bilateral ureteral obstruction and Dr. Leon about 2 months ago placed bilateral ureteral stents. In spite of that, her creatinine continues to decline. Her creatinine is 4.[address], she has bilateral hydroureteronephrosis due to obstruction of the distal ureters by pelvic masses. The intention today was to change her plastic stent placed by Dr. Leon to metal once that would resist compression. She also has hematuria, which has yet to be worked up. The cystoscopy will be part of the hematuria workup. The CT scan was done yesterday. SHE IS ALLERGIC TO PENICILLIN. She was given Levaquin 250 mg IV stone setter metal optical frames to the OR. DESCRIPTION OF PROCEDURE: The patient was given induction of general anesthesia. She was placed in the dorsal lithotomy position and prepped and draped. A 21-Kinyarwanda cystoscope with 30-degree lens was used for visualization. The urine was quite murky. We were able to see the stents and remove them entirely with grasping forceps one at a time. Looking in the bladder, we saw the bladder wall studded with white little nodules. I decided to use a cold cup biopsy forceps and biopsied 2 sites in the bladder. The biopsy sites were cauterized with the Bugbee electrode. However, at this point, there was so much bleeding in the bladder from the bladder wall, but I could not find the ureteral orifices. Therefore, the attempt to insert the ureteral stent was abandoned. I will contact interventional radiology for her to have nephrostomy tubes place bilaterally. TRANSINT:[id number] Voice Confirmation ID: [id number] DOCUMENT ID: [id number] OPERATIVE REPORT [id number] TONYA LEON ROBERT S MD at 1847 CC: [id number] DICTATION DATE: 02/18/17 1200 DYE BOARDING MACHINE OPERATOR: 02/18/17 1513 ADM IN [place] [id number] [place] [address]
[2017-02-18 19:00] VITALS: BP 155/78
--- NOTE | 2017-02-18 19:00 | NUR ---
2ND UNIT PRBC INFUSION COMPLETE. VSS.
--- NOTE | 2017-02-18 19:15 | NUR ---
BEDSIDE REPORT RECEIVED AND CARE OF PT ASSUMED. PT LYING IN SUPINE POSITION WITH EYES CLOSED AND UNLABORED BREATHING. RIGHT IP ACCESSED WITH NS INFUSING AT 100 ML / HR. WILL MONITOR [place] FOR NEEDS.
--- NOTE | 2017-02-18 21:03 | NUR ---
HS MEDICATIONS GIVEN. WILL CONTINUE TO MONITOR FOR NEEDS.
[2017-02-19] VITALS (10 sets, daily range): BP systolic 143–191; BP diastolic 65–104
--- NOTE | 2017-02-19 01:44 | NUR ---
GAVE TRAMADOL 50 MG PO FOR C/O ABDOMINAL PAIN.
--- NOTE | 2017-02-19 02:22 | NUR ---
PT CONTINUES TO HAVE PAIN, GETTING WORSE IN ABDOMEN. GAVE NORCO PER PRN ORDER. WILL CONTINUE TO MONITOR FOR NEEDS.
[2017-02-19 05:50] LABS: BASOPHILS 0.1 % (0-2); EOSINOPHILS 1.1 % (0-7); HEMATOCRIT 27.5 % (36.0-48.0); IMMATURE GRANULOCYTES 0.3 % (0-5); LYMPHOCYTES 4.4 % (15-50); MCH 28.5 pg (26.0-34.0); MCHC 33.8 g/dL (31.0-37.0); MEAN PLATELET VOLUME 8.3 fL (7.4-10.4); MONOCYTES 9.3 % (2-11); NEUTROPHILS 84.8 % (40-80); RDW 15.2 % (11.5-14.5); WBC 14.9 10x3/uL (4.8-10.8)
[2017-02-19 05:52] LABS: INR 1.12 (0.85-1.17); PROTIME 14.3 SECONDS (11.6-15.0)
[2017-02-19 05:54] LABS: HEMOGLOBIN 9.3 g/dL (12-16); MCV 84.4 fL (80.0-100.0); PLATELET COUNT 412 10x3/uL (130-400); RBC 3.26 10x6/uL (4.00-5.40)
[2017-02-19 06:17] LABS: ANION GAP 15.8 mmol/L (8-16); CALCIUM 9.6 mg/dL (8.5-10.1); POTASSIUM - SERUM 4.4 mmol/L (3.5-5.1)
[2017-02-19 06:18] LABS: CARBON DIOXIDE 17.6 mmol/L (21.0-32.0)
--- NOTE | 2017-02-19 07:35 | NUR ---
AWAKE AND ALERT AT THIS TIME. ALERT AND ORIENTED X4 AND C/O ABDOMINAL PRESSURE AND DISCOMFORT. CONSENT FORM REVIEWED WITH PT AND SHE DENIES QUESTIONS OR CONCERNS. CONSENT SIGNED BY PATIENT. ASSESSMENT PERFORMED PER FLOWSHEET. CALL LIGHT IN REACH, WILL CONTINUE WITH PLAN OF CARE.
--- NOTE | 2017-02-19 08:44 | NUR ---
TAKEN TO CT FOR PROCEDURE AT THIS TIME. WILL MONITOR PT WHEN SHE RETURNS.
--- NOTE | 2017-02-19 13:18 | NUR ---
PRN TRAMADOL ADMINISTERED AT THIS TIME FOR PAIN 10/13. ASSISTED PT WITH MEAL SET UP. REMAINS ON RENU ALARM FOR FALL PRECATIONS. CALL LIGHT IN REACH, WILL CONTINUE WITH PLAN OF CARE.
--- NOTE | 2017-02-19 15:28 | NUR ---
PRN NORCO-5 ADMINISTERED FOR PAIN AT THIS TIME. NEPHROSTOMY TUBES DRAINED AND MEASURED AT THIS TIME.
--- NOTE | 2017-02-19 19:00 | NUR ---
BEDSIDE REPORT RECEIVED AND CARE OF PT ASSUMED. PT LYING IN SEMI LEPE'S POSITION WITH EYES CLOSED. RIGHT IP ACCESSED WITH NS INFUSING AT 75 ML / HR. BILATERAL NEPHROSTOMY TUBES IN PLACE, WITH BLOODY URINE IN LEFT TUBE AND PINK TINGED URINE IN RIGHT. WILL MONITOR CLOSELY FOR NEEDS.
--- NOTE | 2017-02-19 20:00 | NUR ---
EMPTIED NEPHROSTOMY TUBES: 300 ML FROM RIGHT AND 50 ML FROM LEFT
--- NOTE | 2017-02-19 21:55 | NUR ---
HS MEDICATIONS GIVEN TO INCLUDE A TRAMADOL PO PER REQUEST FOR PAIN. WILL CONTINUE TO MONITOR FOR NEEDS.
--- NOTE | 2017-02-19 22:00 | NUR ---
EMPTIED NEPHROSTOMY TUBES: 200 MLS FROM RIGHT AND 25 MLS FROM LEFT.
--- NOTE | 2017-02-20 | NUR ---
EMPTIED NEPHROSTOMY BAGS: 225 MLS FROM RIGHT SIDE AND 100 MLS FROM LEFT SIDE.
[2017-02-20 04:00] VITALS: BP 144/71
--- NOTE | 2017-02-20 07:41 | NUR ---
REPORT RECEIVED FROM FOREIGN STUDENT ADVISER NURSE. CALL LIGHT IN REACH.
--- NOTE | 2017-02-20 09:05 | NUR ---
ASSESSMENT COMPLETED. DENIES NEEDS AT THIS TIME. CALL LIGHT IN REACH. WILL CONTINUE WITH PLAN OF CARE.
[2017-02-20 09:35] VITALS: BP 140/75
[2017-02-20 09:42] LABS: ANION GAP 15.9 mmol/L (8-16); CALCIUM 9.2 mg/dL (8.5-10.1); CARBON DIOXIDE 19.6 mmol/L (21.0-32.0); CREATININE - SERUM 3.7 mg/dL (0.6-1.3); POTASSIUM - SERUM 4.5 mmol/L (3.5-5.1)
--- NOTE | 2017-02-20 11:20 | NUR ---
RESTING WITH EYES CLOSED. RESP EVEN AND UNLABROED. CALL LIGHT IN REACH.
--- NOTE | 2017-02-20 12:01 | NUR ---
NORCO PO PER C/O PAIN OF 4. REFUSES TO GET TURNED EVERY 2 HOURS. CALL LIGHT IN REACH. BED ALARM ON.
[2017-02-20 12:46] VITALS: BP 143/72
--- NOTE | 2017-02-20 13:42 | NUR ---
Nutrition Follow Up: Pt stated that she has no appetite. She refused supplements at this time. Pt is eating 7% meal avg on a regular diet. Wt stable. No BM since admit. Labs and meds reviewed. Rec continue current diet. Rec consider an appetite stimulant. RD following.
--- NOTE | 2017-02-20 14:25 | NUR ---
BILATERAL NEPHROSTOMY TUBES FLUSHED WITH 10CC OF NS EACH.
--- NOTE | 2017-02-20 15:35 | NUR ---
RESTING QUIETLY IN BED. BILATERAL NEPHROSTOMY TUBES IN PLACE WITH CLEAR-EMERY URINE. DENIES NEEDS. REPORTS PAIN WELL MANAGED. DENIES NEEDS.
--- NOTE | 2017-02-20 16:22 | NUR ---
NO NEEDS VOICED AT THIS TIME. CALL LIGHT IN REACH.
[2017-02-20 16:29] VITALS: BP 135/75
--- NOTE | 2017-02-20 18:15 | NUR ---
NO CHANGES IN INITAL ASSESSMENT. CALL LIGHT IN REACH. WILL CONTINUE WITH PLAN OF CARE.
[2017-02-20 20:07] VITALS: BP 151/81
--- NOTE | 2017-02-20 22:17 | NUR ---
REC'D SITTING UP IN BED. ALERT AND ORIENTED X4. NO DISTRESS NOTED. EMPITED NEPHRO BAG 500ML OUT OF RIGHT SIDE. INSTRUCTED TO CALL IF NEEDED ANYTHING. VERBALIZED UNDERSTANDING. WILL ADMIN PM/AM MEDS PRESRCIBED. BED LOW, LOCKED, CALL LIGHT IN REACH.
[2017-02-20 23:50] VITALS: BP 148/74
[2017-02-21 03:58] VITALS: BP 156/84
--- NOTE | 2017-02-21 04:55 | NUR ---
PATIENT RESTING WITH EYES CLOSED AND NO VISIBLE SIGNS OF DISTRESS. BED IN LOWEST POSITION AND CALL LIGHT WITHIN REACH.
[2017-02-21 09:02] VITALS: BP 157/78
--- NOTE | 2017-02-21 10:00 | NUR ---
PATIENT IN RIGHT LATERAL POSITION RESTING QUIETLY WITH EYES CLOSED. RESPIRATIONS EVEN AND UNLABORED. SIDE RAILS UP X2. BED IN LOW POSITION. CALL LIGHT IN REACH.
[2017-02-21 12:44] VITALS: BP 142/66
--- NOTE | 2017-02-21 15:15 | NUR ---
PATIENT ALERT IN BED VISITING WITH GUEST. NO SIGNS OF DISTRESS NOTED. DENIES NEEDS. CALL LIGHT IN REACH.
[2017-02-21 15:36] VITALS: BP 158/81
--- NOTE | 2017-02-21 17:49 | NUR ---
RATES PAIN 4/10. NORCO GIVEN PER PRN ORDER. NO FURTHER NEEDS VOICED. SIDE RAILS UP X2. BED IN LOW POSITION. CALL LIGHT IN REACH.
[2017-02-21 19:00] VITALS: BP 138/66
--- NOTE | 2017-02-21 19:00 | NUR ---
BEDSIDE REPORT RECEIVED AND CARE OF PT ASSUMED. PT LYING IN LOW LEPE'S POSITION WATCHING TV. RIGHT IP ACCESSED WITH NS INFUSING AT 75 ML / HR. YELLOW URINE IN RIGHT NEPHROSTOMY BAG, NON IN LEFT BAG. WILL MONITOR [place] FOR NEEDS.
--- NOTE | 2017-02-21 21:05 | NUR ---
EMPTIED 400 ML OF YELLOW URINE FROM RIGHT NEPHROSTOMY BAG...LEFT BAG EMPTY.
--- NOTE | 2017-02-21 21:11 | NUR ---
HS MEDICATIONS GIVEN TO INCLUDE NORCO PER REQUEST FOR PAIN.
[2017-02-22] VITALS (7 sets, daily range): BP systolic 119–157; BP diastolic 64–78
--- NOTE | 2017-02-22 01:30 | NUR ---
EMPTIED 500 ML OF YELLOW URINE FROM RIGHT NEPHROSTOMY BAG...LEFT BAG REMAINS EMPTY.
[2017-02-22 06:03] LABS: BASOPHILS 0.1 % (0-2); EOSINOPHILS 3.8 % (0-7); HEMATOCRIT 28.4 % (36.0-48.0); HEMOGLOBIN 9.4 g/dL (12-16); LYMPHOCYTES 5.1 % (15-50); MCH 28.2 pg (26.0-34.0); MCHC 33.1 g/dL (31.0-37.0); MCV 85.3 fL (80.0-100.0); MEAN PLATELET VOLUME 8.2 fL (7.4-10.4); MONOCYTES 7.2 % (2-11); NEUTROPHILS 82.8 % (40-80); RBC 3.33 10x6/uL (4.00-5.40); RDW 14.9 % (11.5-14.5); WBC 15.4 10x3/uL (4.8-10.8)
[2017-02-22 06:07] LABS: PLATELET COUNT 328 10x3/uL (130-400)
[2017-02-22 06:36] LABS: ANION GAP 15.1 mmol/L (8-16); BILIRUBIN - TOTAL 0.23 mg/dL (0.2-1.3); CALCIUM 8.1 mg/dL (8.5-10.1); CARBON DIOXIDE 18.7 mmol/L (21.0-32.0); PROTEIN - SERUM 6.1 g/dL (6.4-8.2)
[2017-02-22 06:37] LABS: CREATININE - SERUM 2.5 mg/dL (0.6-1.3); POTASSIUM - SERUM 3.8 mmol/L (3.5-5.1)
--- NOTE | 2017-02-22 07:20 | NUR ---
PATIENT RECEIVED ALERT IN MID LEPE POSITION. RESPIRATIONS EVEN AND UNLABORED. DENIES NEEDS. SIDE RAILS UP X2. BED IN LOW POSITION. CALL LIGHT IN REACH.
--- NOTE | 2017-02-22 09:24 | NUR ---
ALERT IN BED. NO SIGNS OF DISTRESS NOTED. RATES PAIN 09/12. NORCO GIVEN PER REQUEST PER PRN ORDER. DENIES FURTHER NEEDS. BED IN LOW POSITION. CALL LIGHT IN REACH.
--- NOTE | 2017-02-22 13:27 | NUR ---
PATIENT ALERT IN BED WATCHING TV. NO SIGNS OF DISTRESS NOTED. BILATERAL NEPHROSTOMY TUBES FLUSHED PER ORDER. DENIES NEEDS. SIDE RAILS UP X2. BED IN LOW POSITION. CALL LIGHT IN REACH.
--- NOTE | 2017-02-22 15:00 | NUR ---
ALERT IN BED. C/O PAIN 09/12. NORCO PER PRN ORDER. NO FURTHER NEEDS VOICED. SIDE RAILS UP X2. BED IN LOW POSITION. CALL LIGHT IN REACH.
--- NOTE | 2017-02-22 17:30 | NUR ---
ALERT IN BED EATING DINNER. TOLERATING WELL. DENIES NEEDS. SIDE RAILS UP X2. BED IN LOW POSITION. CALL LIGHT IN REACH.
--- NOTE | 2017-02-22 19:00 | NUR ---
REPORT RECEIVED AND CARE OF PT ASSUMED. PT LYING ON RIGHT SIDE WITH EYES CLOSED. RIGHT IP ACCESSED AND PATENT WITH NS INFUSING AT 75 ML / HR. NEPHROSTOMY TUBES PATENT WITH YELLOW URINE PRESENT IN BOTH BAGS. WILL MONITOR CLOSELY FOR NEEDS.
--- NOTE | 2017-02-22 20:00 | NUR ---
ASSESSMENT PER FLOWSHEET. IV PATENT RT INFUSAPORT OF NS AT 75CC'S/HR SITE CLEAR. UP AD DUKE TO BR VOIDS WELL. DRESSING TO RT AND LT FLANK SITES C/D/I. DENEIS NEEDS.
--- NOTE | 2017-02-22 20:30 | NUR ---
HS MEDICATIONS GIVEN TO INCLUDE NORCO PER REQUEST FOR PAIN. FLUSHED BILATERAL NEPHROSTOMY TUBES.
--- NOTE | 2017-02-22 20:30 | NUR ---
EMPTIED BILATERAL NEPHROSTOMY TUBES. R) 325 ML AND L) 25 ML
--- NOTE | 2017-02-22 22:37 | NUR ---
PT RESTING QUIETLY WITH EYES CLOSED. CALL LIGHT WITHIN REACH.
--- NOTE | 2017-02-22 23:26 | NUR ---
GAVE TRAMADOL 50 MG PO PER PT REQUEST FOR BACK PAIN. WILL MONITOR FOR EFFECTIVENESS.
[2017-02-23] VITALS: BP 155/72
[2017-02-23 04:00] VITALS: BP 123/74
--- NOTE | 2017-02-23 07:15 | NUR ---
REPORT RECEIVED FROM REFERRAL AGENT NURSE. TO OR VIA BED.
[2017-02-23 09:09] VITALS: BP 141/91
--- NOTE | 2017-02-23 09:10 | NUR ---
RECEIVED FROM RECOVERY ROOM VIA BED. VSS. CALL LIGHT IN REACH. BREAKFAST TRAY ORDERED. CALL LIGHT IN REACH.
--- NOTE | 2017-02-23 09:37 | NUR ---
PT SEEN POST OP. NO COMPLAINTS OF PAIN EXCEPT DISCOMFORT. RIGHT PORT DRESSING NOTED WITH DATE OF 02/18 WITH PATENCY NOTED. [facility]
--- NOTE | 2017-02-23 10:02 | NUR ---
TRANADOL PO PER C/O PAIN OF 4. CALL LIGHT IN REACH.
--- NOTE | 2017-02-23 11:33 | NUR ---
LEVAQUIN 250 GM SIVPB. STATES PAIN IS DOWN TO A 3. CALL LIGHT IN REACH.
[2017-02-23 11:58] VITALS: BP 155/77
--- NOTE | 2017-02-23 12:09 | OP ---
PATIENT NAME: TONYA LEON MEDICAL RECORD: [id number] :47 LOCATION:[id number] ADMISSION DATE:02/17/17 SURGEON: MONICA GIRON MD DATE OF OPERATION: 02/23/2017 SURGEON: Monica Giron MD ANESTHESIA: General anesthesia by Aman Meza CRNA PREOPERATIVE DIAGNOSIS: Bilateral hydroureteronephrosis due to cervical cancer. POSTOPERATIVE DIAGNOSIS: Bilateral hydroureteronephrosis due to cervical cancer. PROCEDURE: Cystoscopy, removal of preexisting ureteral stent, antegrade nephrosto-urethrogram, insertion of bilateral metal Resonance stent 6-Yemeni x 24 cm and removal of nephrostomy tubes. ESTIMATED BLOOD LOSS: None. COMPLICATIONS: None. CLINICAL HISTORY: This is a 71-year-old female with cervical cancer about 1 year ago. She was treated with chemotherapy and radiation. Subsequently, she developed bilateral hydroureteronephrosis. At [facility], one of the urologist had inserted bilateral ureteral stents, but they were plastic stents and they got compressed by the tumors. She came in with acute renal failure. She had bilateral hydroureteronephrosis on CT scan. At her previous procedure, I removed the plastic ureteral stents with the aim of putting in metal stents. The metal stents are not compressible by tumor. In trying to find the ureteral orifices, I had great difficulty in finding them. Not only was there a lot of tumor visible in the bladder, there was a lot of gross hematuria also, which obscured the vision. 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 In the interim, she went to interventional radiology and she had bilateral nephrostomy tubes placed along with bilateral antegrade ureteral stent placed. These are 8-Yemeni plastic stents. She comes today to have the metal stents placed and to remove the nephrostomy tube of the metal stents are successful. She is allergic to penicillin. She was given Levaquin 500 mg IV recreation facility manager to the OR. DESCRIPTION OF PROCEDURE: The patient was given induction of general anesthesia. She was placed in the dorsal lithotomy position and prepped and draped. A 21-Yemeni cystoscope with 30-degree lens was used for visualization. The blue colored 8-Yemeni ureteral stents placed in an antegrade fashion by interventional radiology was seen. The right stent was grasped with graspers. The distal end of the stent was pulled out of the urethral meatus. Into the stent lumen, we placed a Sensor wire. This allowed us to get the wire all the way up to the renal pelvis. The stent was then entirely removed, leaving the wire in place. Cystoscopy revealed the position of the ureteral orifice in a very difficult to find the location within heaps of tumor or masses. Over the wire, we inserted the ureteral sheath and ureteral catheter. The ureteral catheter lies within the ureteral sheath. This was placed up to the renal pelvis level. There was a radiopaque marker on the ureteral sheath isaías its OPERATIVE REPORT [id number] TONYA LEON location. Once the sheath was in correct position, the ureteral catheter and the guidewire were removed entirely. The 6 Yemeni x 24 cm Resonance stent was placed into the renal pelvis and seen to coil under fluoroscopy. The distal end was pushed into the bladder using the ureteral catheter. We then removed the scope after draining the bladder. At this point, I had the mixing technician inject diluted contrast into her nephrostomy tube for an antegrade nephrosto-urethrogram. Hydronephrosis of the kidney was seen; however, there was prompt drainage of the contrast into the bladder. This does indicate that the stent is working. The same procedure was repeated on the left side. On the left side, we found that there was still a string attached to the stent and both stents will actually be sent to pathology for identification. It will be noted that there is a string attached to the left stent. Again, at the end of the stent placement on the left side, we did a nephrosto-urethrogram and this showed that the contrast did go down the stent into the bladder. Both renal pelvis either hydronephrotic. At this point, the bladder was emptied completely through the cystoscope and then the cystoscope was removed. We then turned the patient on her side. The nephrostomy tubes were both removed entirely. This involves cutting some sutures and also cutting the nephrostomy tube in order to cut the internal string in it and then pulling the most proximal ends out. Once both sides had been done, we put 4 x 4 gauze and an ABD pads and tape for dressing was on the nephrostomy tube site. Final fluoroscopy was performed to verify that the proximal end of the stent were not pulled in any way during the nephrostomy tube removal and the stent, both remain in correct position. The procedure was then terminated and the patient was brought to the recovery room. TRANSINT:[id number] Voice Confirmation ID: [id number] DOCUMENT ID: [id number] MONICA GIRON MD at 1209 CC: [id number] DICTATION DATE: 02/23/17 0854 DIRECTOR OF STUDENT LIFE: 02/23/17 1121 ADM IN [place] [id number]
--- NOTE | 2017-02-23 13:40 | NUR ---
NO NEEDS VOICED AT THIS TIME. CALL LIGHT IN REACH.
--- NOTE | 2017-02-23 14:16 | NUR ---
PAIN IS NOW A 0. CALL LIGHT IN REACH.
--- NOTE | 2017-02-23 16:30 | NUR ---
NORCO PO PER PATIENT REQUEST D.T PAIN OF 4. NO OTHER NEEDS VOICED AT THIS TIME. CALL LIGHT IN REACH.
[2017-02-23 17:16] VITALS: BP 145/68
--- NOTE | 2017-02-23 18:03 | NUR ---
NO CHANGES IN INITIAL ASSESSMENT. CALL LIGHT IN REACH. WILL CONTINUE WITH PLAN OF CARE.
[2017-02-23 19:00] VITALS: BP 137/77
--- NOTE | 2017-02-23 22:00 | NUR ---
RESTING QUIETLY DENIES NEEDS.
[2017-02-24] VITALS: BP 152/80
--- NOTE | 2017-02-24 | NUR ---
EYES CLOSED RESPIRATIONS WITH EASE AND UNLABORED.
--- NOTE | 2017-02-24 02:00 | NUR ---
EYES CLOSED RESPIRATIONS WITH EASE AND UNLABORED. DENIES NEEDS.
[2017-02-24 04:00] VITALS: BP 166/85
--- NOTE | 2017-02-24 04:15 | NUR ---
UP AD DUKE TO BR VOIDS WELL.
--- NOTE | 2017-02-24 06:00 | NUR ---
NO CHANGES IN ASSESSMENT.
--- NOTE | 2017-02-24 07:10 | NUR ---
RECIEVED REPORT, ASSUMED CARE OF PT. RESTING IN ROOM, EYES CLOSED. NO SIGNS OF ACUTE DISTRESS. R INFUSAPORT INFUSING ORDERED, DRSG CLEAN, DRY AND INTACT. DRSG TO BACK CLEAN, DRY AND INTACT. BED IN LOWEST POSITION, SIDE RAILS UP X 2, CALL LIGHT WITHIN REACH.
[2017-02-24 09:29] VITALS: BP 165/74
[2017-02-24 12:24] VITALS: BP 145/70
--- NOTE | 2017-02-24 13:26 | NUR ---
NUTRITION MONITORING & EVAL CHART REVIEWED, PT VISIT. PT REFUSING TO EAT. STATES SHE HAS NO APPETITE AND IS HAVING "GAS PAINS". NO RECENT BM, NURSING AWARE. RD FOLLOWING
[2017-02-24 13:48] LABS: BASOPHILS 0.1 % (0-2); EOSINOPHILS 0.7 % (0-7); HEMATOCRIT 30.7 % (36.0-48.0); IMMATURE GRANULOCYTES 0.7 % (0-5); LYMPHOCYTES 3.1 % (15-50); MCH 28.2 pg (26.0-34.0); MCHC 32.6 g/dL (31.0-37.0); MCV 86.5 fL (80.0-100.0); MEAN PLATELET VOLUME 8.2 fL (7.4-10.4); MONOCYTES 4.9 % (2-11); NEUTROPHILS 90.5 % (40-80); PLATELET COUNT 275 10x3/uL (130-400); RBC 3.55 10x6/uL (4.00-5.40); RDW 15.2 % (11.5-14.5); WBC 18.3 10x3/uL (4.8-10.8)
[2017-02-24 14:08] LABS: ALBUMIN 2.1 g/dL (3.4-5.0); ANION GAP 19.8 mmol/L (8-16); BILIRUBIN - TOTAL 0.2 mg/dL (0.2-1.3); CALCIUM 7.5 mg/dL (8.5-10.1); CARBON DIOXIDE 15.8 mmol/L (21.0-32.0); CREATININE - SERUM 4.3 mg/dL (0.6-1.3); POTASSIUM - SERUM 4.6 mmol/L (3.5-5.1); PROTEIN - SERUM 5.9 g/dL (6.4-8.2)
--- NOTE | 2017-02-24 15:37 | NUR ---
PT RESTING IN ROOM, NO COMPLAINTS AT THIS TIME. STATES SOME RELIEF OF GAS PAINS. NO NEEDS VOICED AT THIS TIME. BED IN LOWEST POSITION, SIDE RAILS UP X 2, CALL LIGHT WITHIN REACH.
[2017-02-24 16:14] VITALS: BP 174/82
--- NOTE | 2017-02-24 19:17 | NUR ---
REPORT GIVEN, PT RESTING IN ROOM, NO COMPLAINTS AT THIS TIME. BED IN LOWEST POSITION, SIDE RAILS UP X 2, CALL LIGHT WITHIN REACH.
[2017-02-24 20:00] VITALS: BP 152/87
--- NOTE | 2017-02-24 20:00 | NUR ---
ASSESSMENT PER FLOWSHEET. IV PATENT RT INFUSAPORT OF NS AT 75CC'S/HR SITE CLEAR. ABDOMEN DISTENDED BS PRESENT PT STATES HAS BEEN URINATING PLACED MEASURING HAT IN COMMODE.
--- NOTE | 2017-02-24 22:00 | NUR ---
RESTING QUIETLY DENIES NEEDS.
[2017-02-25] VITALS (7 sets, daily range): BP systolic 162–184; BP diastolic 81–96
--- NOTE | 2017-02-25 00:51 | NUR ---
EYES CLOSED RESPIRATIONS WITH EASE AND UNLABORED.
--- NOTE | 2017-02-25 01:14 | NUR ---
C/O PAIN IN BACK INCISIONAL AREAS RATES PAIN #5. TRAMADOL 50MG PO GIVEN FOR PAIN CONTROL.
--- NOTE | 2017-02-25 04:00 | NUR ---
EYES CLOSED RESPIRATIONS WITH EASE AND UNLABORED.
--- NOTE | 2017-02-25 06:00 | NUR ---
NO CHANGES IN ASSESSMENT.
--- NOTE | 2017-02-25 07:30 | NUR ---
RECIEVED REPORT, ASSUMED CARE OF PT. PT RESTING IN ROOM, WATCHING TV, NO COMPLAINTS AT THIS TIME. DRSG TO R AND L FLANK IN PLACE, CLEAN, DRY AND INTACT. R INFUSAPORT RUNNING WITH FLUIDS ORDERED, DRSG CLEAN, DRY AND INTACT. BED IN LOWEST POSITION, SIDE RAILS UP X 2, CALL LIGHT WITHIN REACH.
[2017-02-25 10:29] LABS: BASOPHILS 0.1 % (0-2); EOSINOPHILS 0.7 % (0-7); HEMATOCRIT 31.8 % (36.0-48.0); HEMOGLOBIN 10.4 g/dL (12-16); IMMATURE GRANULOCYTES 0.8 % (0-5); LYMPHOCYTES 3.2 % (15-50); MCH 28.3 pg (26.0-34.0); MCHC 32.7 g/dL (31.0-37.0); MCV 86.4 fL (80.0-100.0); MEAN PLATELET VOLUME 8.2 fL (7.4-10.4); MONOCYTES 6.3 % (2-11); NEUTROPHILS 88.9 % (40-80); PLATELET COUNT 311 10x3/uL (130-400); RBC 3.68 10x6/uL (4.00-5.40); WBC 20.3 10x3/uL (4.8-10.8)
[2017-02-25 11:04] LABS: ALBUMIN 2.1 g/dL (3.4-5.0); ANION GAP 19.7 mmol/L (8-16); BILIRUBIN - TOTAL 0.2 mg/dL (0.2-1.3); CALCIUM 7.9 mg/dL (8.5-10.1); CARBON DIOXIDE 16.5 mmol/L (21.0-32.0); CREATININE - SERUM 5.6 mg/dL (0.6-1.3); POTASSIUM - SERUM 5.2 mmol/L (3.5-5.1)
--- NOTE | 2017-02-25 15:12 | NUR ---
PT R INFUSAPORT DRSG CHANGED WITH STERIL TECHNIQUE, CONTENTS OF ENTIRE PACKAGE USED.
--- NOTE | 2017-02-25 16:14 | NUR ---
PT WATCHING TV, NO COMPLAINTS AT THIS TIME. BED IN LOWEST POSITION, SIDE RAILS UP X 2, CALL LIGHT WITHIN REACH.
--- NOTE | 2017-02-25 19:24 | NUR ---
PT RESTING IN ROOM, NO COMPLAINTS AT THIS TIME. BED IN LOWEST POSITION, SIDE RAILS UP X 2, CALL LIGHT WITHIN REACH.
--- NOTE | 2017-02-25 20:00 | NUR ---
ASSESMENT PER FLOWSHEET. IV PATENT RT INFUSAPORT OF NS AT 75CC'S/HR SITE CLEAR. ABDOMEN DISTENDED. BS PRESENT.
--- NOTE | 2017-02-25 21:00 | NUR ---
DR. KIM HERE ORDERS REC'D.
--- NOTE | 2017-02-25 22:30 | NUR ---
16FR PRO CATHETER INSERTED WITH EASE AND 450 CC'S CLEAR YELLOW URINE RETURNED. LASIX 20MG IVP GIVEN X1 ORDER. UA SPECIMEN OBTAINED AND SENT TO LAB.
[2017-02-25 23:36] LABS: APPEARANCE CLOUDY (CLEAR); BILIRUBIN NEGATIVE (NEGATIVE); COLOR YELLOW (YELLOW); GLUCOSE NEGATIVE (NEGATIVE); KETONE SMALL mg/dL (NEGATIVE); LEUKOCYTE ESTERASE 2+ (NEGATIVE); NITRITE NEGATIVE (NEGATIVE); PROTEIN 3+ mg/dL (NEGATIVE); UROBILINOGEN NORMAL (NORMAL)
[2017-02-25 23:37] LABS: EPITHELIAL CELLS 0-5 /hpf (0-5)
[2017-02-25 23:38] LABS: BACTERIA FEW /hpf (NONE SEEN)
--- NOTE | 2017-02-26 00:04 | NUR ---
EYES CLOSED RESPIRATIONS WITH EASE AND UNLABORED.
--- NOTE | 2017-02-26 02:00 | NUR ---
EYES CLOSED RESPIRATIONS WITH EASE AND UNLABORED.
[2017-02-26 04:00] VITALS: BP 158/84
--- NOTE | 2017-02-26 04:34 | NUR ---
RESTING QUIETLY DENIES NEEDS. SR UP X2 CALL LIGHT WITHIN REACH.
--- NOTE | 2017-02-26 06:13 | NUR ---
RESTING QUIETLY DENIES NEEDS.
--- NOTE | 2017-02-26 07:37 | NUR ---
PT RESTING IN ROOM, EYES SHUT. NO SIGNS OF ACUTE DISTRESS. PRO PATENT, DRAINING, SECURED WITH STAT-LOCK. R CHEST INFUSAPORT, DRSG CLEAN, DRY AND INTACT. FLUIDS ORDERED. BED IN LOWEST POSITION, SIDE RAILS UP X 2, CALL LIGHT WITHIN REACH.
[2017-02-26 10:19] VITALS: BP 155/83
--- NOTE | 2017-02-26 12:37 | NUR ---
PT RESTING IN ROOM, NO COMPLAINTS AT THIS TIME. BED IN LOWEST POSITION, SIDE RAILS UP X 2, CALL LIGHT WITHIN REACH.
[2017-02-26 13:28] VITALS: BP 156/89
[2017-02-26 18:10] VITALS: BP 139/94
--- NOTE | 2017-02-26 19:00 | NUR ---
PT RESTING IN ROOM, NO COMPLAINTS AT THIS TIME. U/S AT BEDSIDE.
[2017-02-26 20:00] VITALS: BP 138/78
--- NOTE | 2017-02-26 23:14 | NUR ---
PATIENT SLEEPING IN BED, HAS NO COMPLAINTS OR NEEDS AT THIS TIME. SHE WAS INFORMED TO CALL THE NURSE IF SHE NEEDED ANYTHING THROUGH THE NIGHT.
[2017-02-27 04:00] VITALS: BP 124/79
[2017-02-27 04:27] LABS: BASOPHILS 0.1 % (0-2); HEMOGLOBIN 8.9 g/dL (12-16); LYMPHOCYTES 5.1 % (15-50); MCH 28.2 pg (26.0-34.0); MCHC 34.2 g/dL (31.0-37.0); MEAN PLATELET VOLUME 8.1 fL (7.4-10.4); MONOCYTES 6.8 % (2-11); PLATELET COUNT 334 10x3/uL (130-400); RBC 3.16 10x6/uL (4.00-5.40); RDW 14.7 % (11.5-14.5); WBC 15.3 10x3/uL (4.8-10.8)
[2017-02-27 04:31] LABS: MCV 82.3 fL (80.0-100.0)
[2017-02-27 04:42] LABS: ANION GAP 8.1 mmol/L (8-16); CALCIUM 7.8 mg/dL (8.5-10.1); CREATININE - SERUM 2.5 mg/dL (0.6-1.3); PHOSPHOROUS 1.8 mg/dL (2.5-4.9); POTASSIUM - SERUM 3.1 mmol/L (3.5-5.1); URIC ACID 6.8 mg/dL (2.6-7.2)
--- NOTE | 2017-02-27 04:59 | NUR ---
REATING WITHOUT NEEDS.CALL LIGHT IN REACH
--- NOTE | 2017-02-27 07:10 | NUR ---
REPORT RECEIVED FROM RESTORATION ECOLOGIST NURSE. CALL LIGHT IN REACH.
--- NOTE | 2017-02-27 08:02 | NUR ---
ASSESSMENT COMPLETED. IV FLUIDS CHANGED TO D5 1/2NS @ 50 CC/HR. DR. ALVAREZ IN ROOM TO SPEAK WITH PATIENT. CALL LIGHT IN REACH. WILL CONTINUE WITH PLAN OF CARE.
[2017-02-27 09:23] VITALS: BP 142/75
--- NOTE | 2017-02-27 10:20 | NUR ---
DENIES NEEDS AT THIS TIME. CALL LIGHT IN REACH.
--- NOTE | 2017-02-27 12:45 | NUR ---
SITTING UP IN BED ATTEMPTING TO EAT DINNER. DENIES NEEDS AT THIS TIME. CALL LIGHT IN REACH.
[2017-02-27 13:23] VITALS: BP 136/75
--- NOTE | 2017-02-27 14:50 | NUR ---
ASSISTED TO BR AND BACK TO BED. THOUGHT SHE NEEDED TO HAVE A BM BUT DID NOT AT THIS TIME.
--- NOTE | 2017-02-27 16:57 | NUR ---
NORCO PO PER PATIENT REQUEST D/T PAIN OF 4. CALL LIGHT IN REACH.
[2017-02-27 17:27] VITALS: BP 129/70
--- NOTE | 2017-02-27 18:12 | NUR ---
NO CHANGES IN INITIAL ASSESSMENT. CALL LIGHT IN REACH. WILL CONTINUE WITH PLAN OF CARE.
--- NOTE | 2017-02-27 19:35 | NUR ---
PATIENT IS IN BED, LAYING ON HER BACK, HOB 20 DEGREES. LIGHT OFF IN ROOM. SHE IS PLAYING ON HER CELL PHONE. SHE DENIES NEEDS AT THIS TIME. BED IN LOWEST POSITION, CALL LIGHT IN REACH. BED RIALS UP X'S 2.
[2017-02-27 20:00] VITALS: BP 168/86
[2017-02-28] VITALS: BP 140/57
[2017-02-28 04:00] VITALS: BP 155/70
[2017-02-28 05:18] LABS: HEMATOCRIT 27.4 % (36.0-48.0); HEMOGLOBIN 9.4 g/dL (12-16); LYMPHOCYTES 5.5 % (15-50); MCH 28.9 pg (26.0-34.0); MCHC 34.3 g/dL (31.0-37.0); MEAN PLATELET VOLUME 7.7 fL (7.4-10.4); NEUTROPHILS 84.6 % (40-80); PLATELET COUNT 396 10x3/uL (130-400); RBC 3.25 10x6/uL (4.00-5.40); RDW 15.1 % (11.5-14.5); WBC 14.6 10x3/uL (4.8-10.8)
[2017-02-28 05:19] LABS: MCV 84.3 fL (80.0-100.0)
[2017-02-28 05:22] LABS: ANION GAP 10.5 mmol/L (8-16); CALCIUM 8.5 mg/dL (8.5-10.1); CARBON DIOXIDE 28.7 mmol/L (21.0-32.0); PHOSPHOROUS 2.2 mg/dL (2.5-4.9); POTASSIUM - SERUM 3.2 mmol/L (3.5-5.1)
[2017-02-28] MEDS ORDERED: BACTRIM DS TABL1 TAB PO (06:44)
[2017-02-28] MEDS ORDERED: OXYBUTYNIN15 MG/BOTT PO (06:45)
[2017-02-28] MEDS ORDERED: FISH OIL 1,0001 CA1 PO (06:45)
[2017-02-28] MEDS ORDERED: ULTRAM50 MG PO (06:45)
--- NOTE | 2017-02-28 07:30 | NUR ---
SPOKE WITH MISHA MOTTA FOR DR MOHAN REGARDING PT'S PRO CATHETER AND IF PT WAS GOING HOME WITH THE CATHETER OR IT WAS TO BE REMOVED BEFORE DISCHARGE. ORDER GIVEN TO REMOVED PRO CATHETER.
--- NOTE | 2017-02-28 07:43 | NUR ---
SLEEPING AT THIS TIME. POSITIONED ON RIGHT SIDE WITH RESPIRATIONS EVEN AND NON LABORED. WILL D/C PRO WHEN PT WAKES UP. CALL LIGHT IN REACH. WILL CONTINUE WITH PLAN OF CARE.
--- NOTE | 2017-02-28 09:15 | NUR ---
PRO CATHETER D/C WITH CATH TIP INTACT PER ORDER. PT TOLERATED WITHOUT COMPLAINTS.
[2017-02-28 09:50] VITALS: BP 179/68
--- NOTE | 2017-02-28 11:05 | NUR ---
ATTEMPTED TO VOID WITHOUT SUCCESS. WILL CONTINUE TO MONITOR PT.
[2017-02-28 11:51] VITALS: BP 147/76
[2017-02-28 16:20] VITALS: BP 143/74
--- NOTE | 2017-02-28 18:12 | NUR ---
PT ABLE TO VOID AT THIS TIME.
--- NOTE | 2017-02-28 18:42 | NUR ---
PT ONLY ABLE TO TOLERATE 75ML OF MAGNESIUM CITRATE AT THIS TIME. PRN NORCO ADMNIISTERED FOR PAIN. DENIES FURTHER NEEDS. PROVIDED WITH FRESH ICE WATER. CALL LIGHT IN REACH, WILL CONTINUE WITH PLAN OF CARE.
[2017-02-28 20:00] VITALS: BP 161/77
--- NOTE | 2017-02-28 22:58 | NUR ---
RN NOTE: PT RESTING ON RIGHT SIDE WITH EYES CLOSED AND UNLABORED BREATHING. RIGHT PORT ACCESSED WITH D5 1/2 NS INFUSING AT 50 ML / HR. CALL LIGHT WITHIN REACH.
[2017-03-01] VITALS: BP 142/67
--- NOTE | 2017-03-01 03:25 | NUR ---
PATIENT'S BLADDER WAS FIRM AND EASY TO PALPATE. BLADDER SCAN SHOWED 675mL OF URINE. IN AND OUT CATH PREFORMED AND GOT OUT 800mL OF CLEAR URINE
[2017-03-01 04:00] VITALS: BP 136/67
[2017-03-01 04:37] LABS: BASOPHILS 0.1 % (0-2); EOSINOPHILS 1.3 % (0-7); HEMATOCRIT 27.3 % (36.0-48.0); HEMOGLOBIN 9.1 g/dL (12-16); IMMATURE GRANULOCYTES 0.5 % (0-5); LYMPHOCYTES 3.9 % (15-50); MCH 28.2 pg (26.0-34.0); MCHC 33.3 g/dL (31.0-37.0); MCV 84.5 fL (80.0-100.0); MEAN PLATELET VOLUME 8.1 fL (7.4-10.4); MONOCYTES 7.6 % (2-11); NEUTROPHILS 86.6 % (40-80); PLATELET COUNT 371 10x3/uL (130-400); RBC 3.23 10x6/uL (4.00-5.40); RDW 14.7 % (11.5-14.5); WBC 15.8 10x3/uL (4.8-10.8)
[2017-03-01 04:52] LABS: CALCIUM 8.6 mg/dL (8.5-10.1); CARBON DIOXIDE 26.4 mmol/L (21.0-32.0); CREATININE - SERUM 1.9 mg/dL (0.6-1.3); POTASSIUM - SERUM 3.4 mmol/L (3.5-5.1)
[2017-03-01 04:55] LABS: PHOSPHOROUS 3.3 mg/dL (2.5-4.9)
--- NOTE | 2017-03-01 07:21 | NUR ---
AWAKE AND ALERT AT THIS TIME. NEW BAG OF IV FLUIDS HUNG PER ORDER. PT DENIES NEED FOR PAIN MEDICATION. PROVIDED PT WITH FRESH ICE WATER AND ASSESSMENT PERFORMED PER FLOWSHEET. CALL LIGHT IN REACH, WILL CONTINUE WITH PLAN OF CARE.
[2017-03-01 08:00] VITALS: BP 151/71
--- NOTE | 2017-03-01 08:17 | NUR ---
16FR PRO CATHETER PLACED USING STERILE TECHNIQUE. PT TOLERATED WITH MINIMAL COMPLAINTS OF PAIN.
[2017-03-01 11:00] VITALS: BP 143/70
--- NOTE | 2017-03-01 12:30 | NUR ---
DISCHARGE PAPERWORK REVIEWED WITH PT AND MOTHER. IV TO LEFT FOREARM D/C WITH CATH TIP INTACT.
[2017-03-01 15:00] VITALS: BP 156/69
[2017-03-01 20:00] VITALS: BP 152/78
--- NOTE | 2017-03-01 20:00 | NUR ---
ASSESSMENT PER FLOWSHEET. PRO TO BEDSIDE DRAINAGE WITH YELLOW URINE DRESSINGS TO RT AND LT FLANK AREA C/D/I. IV PATENT RT INFUSAPORT OF 1/2NS W/20MEQ KCL INFUSING AT 50CC'S/HR.
--- NOTE | 2017-03-01 23:05 | NUR ---
C/O PAIN AND GAS NORCO 5MG PO GIVEN FOR PAIN CONTROL. MYLICON TAB GIVEN PO FOR GAS PER CARMINA TRUONG RN.
--- NOTE | 2017-03-01 23:06 | NUR ---
GAVE NORCO AND MYLICON TAB FOR C/O ABDOMINAL AND BACK PAIN AT LEVEL 5/10. WILL MONITOR FOR EFFECTIVENESS.
[2017-03-02] VITALS (7 sets, daily range): BP systolic 131–156; BP diastolic 65–90
--- NOTE | 2017-03-02 | NUR ---
EYES CLOSED RESPIRATIONS WITH EASE AND UNLABORED.
--- NOTE | 2017-03-02 03:03 | NUR ---
RESTING QUIETLY DENIES NEEDS.
--- NOTE | 2017-03-02 05:06 | NUR ---
C/O BACK PAIN RATES PAIN LEVEL #4. NORCO TAB ONE PO GIVEN FOR PAIN CONTROL.
--- NOTE | 2017-03-02 07:05 | NUR ---
REPORT RECEIVED FROM HOISTING ENGINE OPERATOR NURSE. CALL LIGHT IN REACH.
[2017-03-02 07:39] LABS: BASOPHILS 0.2 % (0-2); EOSINOPHILS 2.5 % (0-7); HEMOGLOBIN 9.1 g/dL (12-16); IMMATURE GRANULOCYTES 0.6 % (0-5); LYMPHOCYTES 4.5 % (15-50); MCH 27.7 pg (26.0-34.0); MCHC 32.5 g/dL (31.0-37.0); MCV 85.1 fL (80.0-100.0); MEAN PLATELET VOLUME 8.2 fL (7.4-10.4); MONOCYTES 7.7 % (2-11); NEUTROPHILS 84.5 % (40-80); PLATELET COUNT 383 10x3/uL (130-400); RBC 3.29 10x6/uL (4.00-5.40); RDW 14.7 % (11.5-14.5); WBC 17.8 10x3/uL (4.8-10.8)
[2017-03-02 07:57] LABS: ANION GAP 13.6 mmol/L (8-16); CALCIUM 9.1 mg/dL (8.5-10.1); CARBON DIOXIDE 25.5 mmol/L (21.0-32.0); CREATININE - SERUM 1.8 mg/dL (0.6-1.3); MAGNESIUM - SERUM 1.5 mg/dL (1.8-2.4)
[2017-03-02 08:01] LABS: POTASSIUM - SERUM 4.1 mmol/L (3.5-5.1)
--- NOTE | 2017-03-02 09:14 | NUR ---
ASSESSMENT COMPLETED. AM MEDS ADMINISTERED. CALL LIGHT IN REACH. WILL CONTINUE WITH PLAN OF CARE.
--- NOTE | 2017-03-02 11:30 | NUR ---
DENIES NEEDS A THIS TIME. CALL LIGHT IN REACH.
--- NOTE | 2017-03-02 13:20 | NUR ---
IN BED WITH EYES CLOSED. RESP EVEN AND UNLABORED. CALL LIGHT IN REACH.
--- NOTE | 2017-03-02 14:47 | NUR ---
NUTRITION MONITORING & EVAL CHART REVIEWED. NURSING REPORTS PT CONTINUES TO HAVE POOR PO INTAKE. MAY BENEFIT FROM APPETITE STIMULANT. WILL CONTINUE TO PROVIDE DIET, MONITOR PO INTAKE. RD FOLLOWING
--- NOTE | 2017-03-02 15:20 | NUR ---
INSTRUCTED PATIENT THAT SHE NEEDS TO GET UP AND AMBULATE MUCH POSSIBLE TO AVOID A BLOOD CLOT OR PNEUMONIA. PATIENT REFUSED.
--- NOTE | 2017-03-02 17:00 | NUR ---
RESTING WITH EYES CLOSED. RESP EVEN AND UNLABORED. CALL LIGHT IN REACH.
--- NOTE | 2017-03-02 18:14 | NUR ---
NO CHANGES IN INITIAL ASSESSMENT. CALL LIGHT IN REACH. WILL CONTINUE WITH PLAN OF CARE.
--- NOTE | 2017-03-02 19:21 | NUR ---
C/O PAIN NORCO TAB ONE PO GIVEN FOR PAIN CONTROL PER KACEY LEON LPN. WARM PACK PLACED TO HER BACK. IV PATENT RT IFP WITH 1/2NS W/20MEQ KCL INFUSING AT 50CC'S/HR SITE CLEAR. PRO TO BS DRAINAGE WITH YELLOW URINE. DRESSINGS X2 TO RT AND LT FLANK AREA C/D/I. REFUSES TO WEAR SCD'S. SR UP X2 CALL LIGHT WITHIN REACH.
--- NOTE | 2017-03-02 22:00 | NUR ---
STATES PAIN PILL DID HELP HER BACK PAIN ALOT.
--- NOTE | 2017-03-02 23:05 | NUR ---
EYES CLOSED RESPIRATIONS WITH EASE AND UNLABORED.
[2017-03-03 03:15] VITALS: BP 191/93
[2017-03-03 06:36] LABS: BASOPHILS 0.2 % (0-2); EOSINOPHILS 2.7 % (0-7); HEMATOCRIT 28.5 % (36.0-48.0); HEMOGLOBIN 9.2 g/dL (12-16); IMMATURE GRANULOCYTES 0.5 % (0-5); LYMPHOCYTES 4.9 % (15-50); MCH 27.7 pg (26.0-34.0); MCHC 32.3 g/dL (31.0-37.0); MCV 85.8 fL (80.0-100.0); MEAN PLATELET VOLUME 8.2 fL (7.4-10.4); MONOCYTES 6.8 % (2-11); NEUTROPHILS 84.9 % (40-80); PLATELET COUNT 423 10x3/uL (130-400); RBC 3.32 10x6/uL (4.00-5.40); RDW 14.5 % (11.5-14.5); WBC 19.7 10x3/uL (4.8-10.8)
[2017-03-03 06:51] LABS: ANION GAP 15.2 mmol/L (8-16); CARBON DIOXIDE 25.2 mmol/L (21.0-32.0); CREATININE - SERUM 1.8 mg/dL (0.6-1.3); PHOSPHOROUS 2.9 mg/dL (2.5-4.9); POTASSIUM - SERUM 4.4 mmol/L (3.5-5.1)
[2017-03-03 08:58] VITALS: BP 146/70
--- NOTE | 2017-03-03 09:13 | NUR ---
PATIENT BEING DISCHARGED HOME TODAY WITH [facility] REFERRAL SENT TO [facility] TO CONTINUE TO ASSIST WITH DISCHARGE PLANNING
--- NOTE | 2017-03-03 09:45 | NUR ---
AWAKE AND ALERT. ORIENTED X3. NO C/O AT THIS TIME. LUNGS ARE CLEAR BILATERALLY, NO COUGH NOTED. SKIN IS INTACT WITHOUT REDNESS EXCEPT BILATERAL INCISIONS TO BACK WHERE NEPHROSTOMY TUBES WERE LAST WEEK. RIGHT PORT PATNET WITHOUT REDNESS AT INSERTION SITE. PRO PATENT WITH CLEAR YELLOW URINE. DENIES NEEDS. SITTING UP ON SIDE OF BED EATING BREAKFAST.
--- NOTE | 2017-03-03 12:00 | NUR ---
LUNCH SERVED IN ROOM. PATIENT NOT INTERESTED IN FOOD AT THIS TIME. INSTRUCTED IN CHANGING OUT THE LEG BAG FOR THE BIG BAG AT NIGHT. PATIENT VERBALIZED UNDERSTANDING BUT WAS VERY DISINTERESTED AND REFUSED TO GIVE RETURN DEMONSTRATION. STATED SHE HAD PEOPLE COMMING IN THAT WOULD TEACH HER. EXPLAINED THEY WOULD ONLY BE THERE FOR A FEW MINUTES AT A TIME. REPEATED SHE WOULD BE OK.
--- NOTE | 2017-03-03 14:00 | NUR ---
OFF UNIT VIA WC AFTER CAB CALLED FOR PATIENT. DISCHARGE INSTRUCTIONS GIVEN BOTH VERBALLY AND WRITTEN. ALL QUESTIONS ANSWERED. PATIENT VERBALIZED UNDERSTANDING OF SAME BUT STATED SHE COULDN'T POSSIBLE MAKE ALL THESE APPOINTMENS. ENCOURAGED TO BE SURE AND KEEP THEM. RIGHT PORT HEPRANIZED AND NEEDLE REMOVED WITHOUT DIFFICULTY.
== END 2017-03-03 14:30 | disposition home health service (06) | DRG 669 ==
LOC: D.MS 12:53
PROVIDERS: Internal Medicine Nephrology; Specialist; Urology; ADMIT Legal Medicine
PROC: 0TP98DZ Removal of Intraluminal Device from Ureter, Via Natural or Artificial Opening Endoscopic (ICD-10-PCS; principal; 2017-02-18 08:00)
PROC: 0TBB8ZX Excision of Bladder, Via Natural or Artificial Opening Endoscopic, Diagnostic (ICD-10-PCS; 2017-02-18 08:00)
PROC: 0T9030Z Drainage of Right Kidney with Drainage Device, Percutaneous Approach (ICD-10-PCS; 2017-02-19)
PROC: 0T9130Z Drainage of Left Kidney with Drainage Device, Percutaneous Approach (ICD-10-PCS; 2017-02-19)
PROC: BT141ZZ Fluoroscopy of Kidneys, Ureters and Bladder using Low Osmolar Contrast (ICD-10-PCS; 2017-02-19)
PROC: 0T788DZ Dilation of Bilateral Ureters with Intraluminal Device, Via Natural or Artificial Opening Endoscopic (ICD-10-PCS; 2017-02-19)
PROC: 0TP98DZ Removal of Intraluminal Device from Ureter, Via Natural or Artificial Opening Endoscopic (ICD-10-PCS; 2017-02-23)
PROC: 0T788DZ Dilation of Bilateral Ureters with Intraluminal Device, Via Natural or Artificial Opening Endoscopic (ICD-10-PCS; 2017-02-23)
PROC: BT141ZZ Fluoroscopy of Kidneys, Ureters and Bladder using Low Osmolar Contrast (ICD-10-PCS; 2017-02-23)
PROC: 0TP5X0Z Removal of Drainage Device from Kidney, External Approach (ICD-10-PCS; 2017-02-23)
DX: N13.1 Hydronephrosis with ureteral stricture, not elsewhere classified (principal); N13.8 Other obstructive and reflux uropathy; C79.82 Secondary malignant neoplasm of genital organs; C53.1 Malignant neoplasm of exocervix; N17.9 Acute kidney failure, unspecified; R63.0 Anorexia; R31.0 Gross hematuria; D64.9 Anemia, unspecified

== ENCOUNTER → 2017-03-17 18:10 | Outpatient (CLI) | payer MEDICARE, MEDICAID ==
[2017-02-18 14:38] VITALS: BMI 23.5
[~2017-03-17 18:10] MED LIST changes: +ULTRAM50 MG PO
[2017-03-17 19:22] LABS: BASOPHILS 0.2 % (0-2); EOSINOPHILS 1.7 % (0-7); HEMATOCRIT 32.6 % (36.0-48.0); HEMOGLOBIN 10.4 g/dL (12-16); IMMATURE GRANULOCYTES 1.5 % (0-5); LYMPHOCYTES 9.2 % (15-50); MCH 27.3 pg (26.0-34.0); MCHC 31.9 g/dL (31.0-37.0); MCV 85.6 fL (80.0-100.0); MONOCYTES 6.4 % (2-11); RBC 3.81 10x6/uL (4.00-5.40); RDW 14.7 % (11.5-14.5); WBC 15.3 10x3/uL (4.8-10.8)
[2017-03-17 19:23] LABS: PLATELET COUNT 534 10x3/uL (130-400)
[2017-03-17 19:24] LABS: APPEARANCE CLOUDY (CLEAR); BILIRUBIN NEGATIVE (NEGATIVE); COLOR YELLOW (YELLOW); GLUCOSE NEGATIVE (NEGATIVE); KETONE NEGATIVE (NEGATIVE); LEUKOCYTE ESTERASE 2+ (NEGATIVE); NITRITE POSITIVE (NEGATIVE); PROTEIN 2+ mg/dL (NEGATIVE); SPECIFIC GRAVITY 1.015 (1.005-1.020); UROBILINOGEN NORMAL (NORMAL)
[2017-03-17 19:29] LABS: WHITE CELLS - URINE 25-50 /hpf (0-5)
[2017-03-17 19:30] LABS: AMORPHOUS SEDIMENT <1+ /lpf (NONE SEEN); BACTERIA MANY /hpf (NONE SEEN); EPITHELIAL CELLS 0-5 /hpf (0-5); GRANULAR CAST OCC /lpf (NONE SEEN)
[2017-03-17 20:00] LABS: ALBUMIN 2.9 g/dL (3.4-5.0); ANION GAP 18.2 mmol/L (8-16); BILIRUBIN - TOTAL 0.2 mg/dL (0.2-1.3); CALCIUM 10.7 mg/dL (8.5-10.1); CREATININE - SERUM 2.7 mg/dL (0.6-1.3); POTASSIUM - SERUM 4.2 mmol/L (3.5-5.1); PROTEIN - SERUM 8.2 g/dL (6.4-8.2)
== END | disposition home or self-care (01) ==
LOC: D.LABREF 18:10
PROVIDERS: Legal Medicine
DX: C53.8 Malignant neoplasm of overlapping sites of cervix uteri (principal)

== ENCOUNTER → 2017-03-25 18:32 | Outpatient (CLI) | payer MEDICARE, MEDICAID ==
[2017-02-18 14:38] VITALS: BMI 23.5
[2017-03-25 20:10] LABS: APPEARANCE CLOUDY (CLEAR); BACTERIA MANY /hpf (NONE SEEN); BILIRUBIN NEGATIVE (NEGATIVE); COLOR YELLOW (YELLOW); EPITHELIAL CELLS 0-5 /hpf (0-5); GLUCOSE NEGATIVE (NEGATIVE); KETONE NEGATIVE (NEGATIVE); LEUKOCYTE ESTERASE 2+ (NEGATIVE); NITRITE NEGATIVE (NEGATIVE); PROTEIN 2+ mg/dL (NEGATIVE); RED CELLS - URINE >50 /hpf (0-5); SPECIFIC GRAVITY 1.015 (1.005-1.020); UROBILINOGEN NORMAL (NORMAL); WHITE CELLS - URINE 25-50 /hpf (0-5)
== END | disposition home or self-care (01) ==
LOC: D.LABREF 18:32
PROVIDERS: Legal Medicine
DX: C53.8 Malignant neoplasm of overlapping sites of cervix uteri (principal); M62.81 Muscle weakness (generalized)

== ENCOUNTER 2017-04-02 10:41 | Inpatient (IN) | payer MEDICARE, MEDICAID ==
[2017-04-02 12:06] LABS: APPEARANCE TURBID (CLEAR); BACTERIA MANY /hpf (NONE SEEN); BILIRUBIN NEGATIVE (NEGATIVE); COLOR YELLOW (YELLOW); EPITHELIAL CELLS OCC /hpf (0-5); GLUCOSE NEGATIVE (NEGATIVE); KETONE NEGATIVE (NEGATIVE); MUCUS <1+ /lpf (NONE SEEN); NITRITE NEGATIVE (NEGATIVE); PROTEIN 1+ mg/dL (NEGATIVE); RED CELLS - URINE >50 /hpf (0-5); UROBILINOGEN NORMAL (NORMAL); WHITE CELLS - URINE >50 /hpf (0-5)
[2017-04-02 12:08] LABS: HEMATOCRIT 29.3 % (36.0-48.0); HEMOGLOBIN 9.5 g/dL (12-16); MCH 27.2 pg (26.0-34.0); MCHC 32.4 g/dL (31.0-37.0); MEAN PLATELET VOLUME 8.4 fL (7.4-10.4); PLATELET COUNT 439 10x3/uL (130-400); RBC 3.49 10x6/uL (4.00-5.40); RDW 15.3 % (11.5-14.5); WBC 21.8 10x3/uL (4.8-10.8)
[2017-04-02 12:28] LABS: ALBUMIN 2.8 g/dL (3.4-5.0); ANION GAP 17.5 mmol/L (8-16); BILIRUBIN - TOTAL 0.27 mg/dL (0.2-1.3); CALCIUM 10.3 mg/dL (8.5-10.1); CARBON DIOXIDE 20.7 mmol/L (21.0-32.0); CREATININE - SERUM 3.2 mg/dL (0.6-1.3); POTASSIUM - SERUM 5.2 mmol/L (3.5-5.1)
[2017-04-02 12:45] LABS: HYPOCHROMASIA OCC; LYMPHOCYTES 9 % (15-50); MONOCYTES 10 % (2-11); NEUTROPHILS 77 % (40-80); PLATELET ESTIMATE INCREASED; ROULEAUX OCC
[2017-04-02 20:00] VITALS: BP 105/72
[2017-04-02 22:57] VITALS: BP 105/72; BMI 23.0
[2017-04-03] VITALS: BP 106/76
[2017-04-03 04:00] VITALS: BP 127/70
--- NOTE | 2017-04-03 07:00 | NUR ---
REPORT RECIEVED ASSUMED CARE. PATIENT IN BED WITH EYES CLOSED RESTING QUIETLY. IV NTACT. CALL LIGHT WITHIN REACH.
[2017-04-03 07:39] VITALS: BP 110/67
--- NOTE | 2017-04-03 08:00 | NUR ---
PATIENT IN BED WITH NO COMPLAINTS. REFUSES TO EAT BREAKFAST. STATES IT IS GROSS. OFFERED TO ORDER SOMETHING DIFFERENT. PATIENT DECLINED. STATED SHE WANTED A MILK SHAKE. EXPLAINED TO PATIENT SHE ISNT SUPPOSE TO HAVE MILK. VERBALIZED UNDERSTANDING. [place] INTACT. CALL TOMI FELIZ.
--- NOTE | 2017-04-03 12:15 | NUR ---
PATIENT STATED SHE ATE A SMALL AMOUNT OF FOOD BUT WANTED TO EAT MILKSHAKE. EXPLAINED TO PATIENT I WOULD ORDER ONE FROM [facility]. SENT DIET MESSAGE. CALL FIDEL FELIZ.
[2017-04-03 12:20] VITALS: BP 119/69
[2017-04-03 12:34] VITALS: BMI 23.0
--- NOTE | 2017-04-03 15:00 | NUR ---
PATIENT IN BED WIHT IV INTACT. NO COMPLAINTS AT THIS TIME. CALL LIGHT WITHINR EACH.
[2017-04-03 15:49] VITALS: BP 109/59
--- NOTE | 2017-04-03 18:52 | NUR ---
PATIENT IN BED WITH IV INTACT. STILL HASNT EATEN. STATED SHE IS WAITING FOR A LITTLE BIT. PRO INTACT. NO OTHER COMPLAINTS AT THIS TIME. CALL LIGHT WITHIN REACH.
[2017-04-03 20:00] VITALS: BP 112/64
[2017-04-04] VITALS (7 sets, daily range): BP systolic 102–129; BP diastolic 48–66
--- NOTE | 2017-04-04 07:34 | NUR ---
A&O, DENIES NEEDS, BED LOWEST POSITION, CALL LIGHT IN REACH, WILL CONTINUE TO MONITOR
--- NOTE | 2017-04-04 08:00 | NUR ---
LYING IN BED,WITHOUT DISTRESS.DENIES NEEDS.CALL LIGHT IN REACH
[2017-04-04 14:06] LABS: BASOPHILS 0.1 % (0-2); HEMATOCRIT 25.1 % (36.0-48.0); HEMOGLOBIN 7.8 g/dL (12-16); IMMATURE GRANULOCYTES 1.4 % (0-5); LYMPHOCYTES 3.8 % (15-50); MCH 26.7 pg (26.0-34.0); MCHC 31.1 g/dL (31.0-37.0); MEAN PLATELET VOLUME 8.2 fL (7.4-10.4); MONOCYTES 6.2 % (2-11); NEUTROPHILS 87.5 % (40-80); RBC 2.92 10x6/uL (4.00-5.40); RDW 15.4 % (11.5-14.5)
[2017-04-04 14:08] LABS: PLATELET COUNT 347 10x3/uL (130-400); WBC 15.6 10x3/uL (4.8-10.8)
[2017-04-04 14:22] LABS: ALBUMIN 1.9 g/dL (3.4-5.0); ANION GAP 16.5 mmol/L (8-16); CALCIUM 8.4 mg/dL (8.5-10.1); CARBON DIOXIDE 17.9 mmol/L (21.0-32.0); CREATININE - SERUM 1.8 mg/dL (0.6-1.3); POTASSIUM - SERUM 4.4 mmol/L (3.5-5.1)
[2017-04-04 14:24] LABS: BILIRUBIN - TOTAL 0.08 mg/dL (0.2-1.3)
--- NOTE | 2017-04-04 15:46 | NUR ---
TALKING ON PHONE TO SISTER, CALL LIGHT IN REACH, DENIES NEEDS, BED LOWEST POSITION, WILL CONTINUE TO MONITOR
[2017-04-05 04:13] VITALS: BP 119/46
--- NOTE | 2017-04-05 07:30 | NUR ---
SLEEPINRG ON RIGHT SIDE,WITHOUT DISTRESS.CALL LIGHT IN REACH
[2017-04-05 09:02] VITALS: BP 129/66
[2017-04-05 12:17] VITALS: BP 115/63
--- NOTE | 2017-04-05 16:12 | NUR ---
PAIN 2, ULTRAM GIVEN PER MAR, BED LOWEST POSITION, WILL CONTINUE TO MONITOR
--- NOTE | 2017-04-05 19:15 | NUR ---
RECEIVED CARE FROM DAY NURSE. PT IN BED WITH COMPANY AT SIDE. REPORTS NO NEEDS AT THIS TIME. CALL LIGHT AT SIDE. IV INFUSING TO RIGHT PORT. PRO TO GRAVITY. INSTRUCTED PT ON IMPORTANCE OF TURNING IN BED TO RELIEVE COCCYX.
[2017-04-05 20:00] VITALS: BP 112/66
[2017-04-06] VITALS: BP 111/55
--- NOTE | 2017-04-06 01:36 | NUR ---
PT RESTING QUITLY WITH EYES CLOSED. RESP EVEN AND UNLABORED. CALL LIGHT AT SIDE. IV INFUSING PER ORDER. PRO TO GRAVITY.
--- NOTE | 2017-04-06 03:49 | NUR ---
PATIENT RESTING IN BED WITH EYES CLOSED AND NO VISIBLE SIGNS OF DISTRESS. BED IN LOWEST POSITION AND CALL LIGHT WITHIN REACH.
[2017-04-06 05:01] VITALS: BP 111/60
--- NOTE | 2017-04-06 07:54 | NUR ---
AWAKE AND ALERT. ORIENTED X3. NO C/O AT THIS TIME. LUNGS ARE CLEAR BILATERALLY, NO COUGH NOTED. SKIN IS INTACT WITHOUT REDNESS. RIGHT PORT PATENT WITHOUT REDNESS AT INSERTION SITE. DENIES NEEDS.
[2017-04-06 08:35] VITALS: BP 115/63
--- NOTE | 2017-04-06 09:30 | NUR ---
OFF UNIT VIA FOR TESTS.
--- NOTE | 2017-04-06 11:11 | NUR ---
Patient Name: TONYA LEON Admission Status: ER Accout number: [id number] Admission Date: 04-02-2017 : 1945 Admission Diagnosis:URINARY TRACT INFECTION, SITE NOT SPECIFIED Attending: TOBIAS MOHAN Current LOS: 4 Anticipated DC Date: Planned Disposition: Home with Home Health Primary Insurance: [facility] Discharge Planning Comments: CM met with patient to assess discharge planning needs. Patient lives independently at the [facility] where she plans to return too. She states that she is current with [facility] she has a shower bar in her apartment. Patient states that she has a friend who will be the one to take her home. She stated that she is safe to return there. CM will continue to follow and assist with discharge planning needs. PCP: [facility] [address] Carlin Pedroza (friend) [phone] Boiler Repair Supervisor: Azalea Montenegro * Is the patient Alert and Oriented? Yes 0 * How many steps to enter\exit or inside your home? 0 0 * PCP Erich 0 * Pharmacy [facility] [address] 0 * Preadmission Environment Home Alone 0 * ADLs Independent 0 * Other Equipment shower bar 0 * Community resources currently utilized Home Health 0 * Please name any agencies selected above. [facility] * Additional services required to return to the preadmission environment? Yes 0 * Can the patient safely return to the preadmission environment? Yes 0 * Has this patient been hospitalized within the prior 30 days at any hospital? No 0 [place] Total: 0
[2017-04-06 11:38] VITALS: BP 91/49
--- NOTE | 2017-04-06 12:45 | NUR ---
NUTRITION F/U CHART REVIEWED. LABS NOTED. POOR INTAKE BREAKFAST BUT PT EATING MUCH BETTER AT LUNCH. PT ON MEGACE. WILL CONTINUE TO MONITOR PO INTAKE, LABS. PT MAY BENEFIT FROM CHANGE TO REG DIET TO ENCOURAGE PO INTAKE. RD FOLLOWING
--- NOTE | 2017-04-06 14:59 | NUR ---
DIDN'T EAT BUT ABOUT HALF OF LUNCH TRAY. I ATE ALL I WANTED. REQUESTED AND GIVEN EGGCRATE OVERLAY FOR COMFORT.
[2017-04-06 15:45] VITALS: BP 102/58
--- NOTE | 2017-04-06 19:25 | NUR ---
RECIEVED SHIFT REPORT. PT IS LYING IN BED. ALERT AND ORIENTED AND ABLE TO VERBALIZE NEEDS. IV IS PATENT AND FLUIDS ARE RUNNING PER ORDER. PRO IS DRAINING URINE BY GRAVITY. PT IS AMBULATORY WITH ASSISTANCE. PT STATES PAIN IS 1/10. NO NEEDS ARE VERBALIZED AT THIS TIME. WILL CONTINUE TO MONITOR. SIDE RAILS ARE UP X 2. BED IS IN LOWEST POSITION. CALL LIGHT IS WITHIN REACH.
--- NOTE | 2017-04-06 21:53 | NUR ---
SHIFT ASSESSMENT COMPLETED. NIGHT MEDS GIVEN WITH NO PROBLEMS. NO NEEDS ARE VOICED. WILL MONITOR. SIDE RAILS X 2. BED LOW. CALL LIGHT IN REACH.
[2017-04-06 22:27] VITALS: BP 122/70
[2017-04-07] VITALS: BP 107/53
[2017-04-07 04:00] VITALS: BP 123/60
--- NOTE | 2017-04-07 07:00 | NUR ---
REPORT RECIEVED ASSUMED CARE. PATIENT IN BED WITH EYES CLOSED RESTING QUIETLY AT THIS TIME. NO COMPLAINTS OR SIGNS OF DISTRESS. CALL LIGHT WITHIN REACH.
[2017-04-07 08:34] VITALS: BP 113/50
[2017-04-07 11:45] VITALS: BP 121/60
[2017-04-07 16:07] VITALS: BP 109/62
--- NOTE | 2017-04-07 18:15 | NUR ---
PATIENT IN BED WITH NO COMPLAINTS. IV INTACT. CALL LIGHT WITHIN REACH.
--- NOTE | 2017-04-07 19:20 | NUR ---
RECIEVED SHIFT REPORT. PT IS LYING IN BED. ALERT AND ORIENTED AND ABLE TO VERBALIZE NEEDS. IV IS PATENT AND FLUIDS ARE RUNNING PER ORDER. PRO IS DRAINING URINE BY GRAVITY. PT IS AMBULATORY WITH ASSISTANCE. PT DENIES ANY PAIN AT THIS TIME. NO NEEDS ARE VERBALIZED AT THIS TIME. WILL CONTINUE TO MONITOR. SIDE RAILS ARE UP X 2. BED IS IN LOWEST POSITION. CALL LIGHT IS WITHIN REACH.
[2017-04-07 20:00] VITALS: BP 119/65
--- NOTE | 2017-04-07 20:24 | NUR ---
SHIFT ASSESSMENT COMPLETED. NIGHT MEDS GIVEN WITH NO PROBLEMS. NO NEEDS ARE VOICED. WILL MONITOR. SIDE RAILS X 2. BED LOW. CALL LIGHT IN REACH.
[2017-04-08] VITALS: BP 129/63
[2017-04-08 04:00] VITALS: BP 141/70
[2017-04-08 07:53] VITALS: BP 123/67
[2017-04-08 08:15] LABS: BASOPHILS 0.1 % (0-2); EOSINOPHILS 1.7 % (0-7); HEMATOCRIT 22.3 % (36.0-48.0); IMMATURE GRANULOCYTES 1.8 % (0-5); LYMPHOCYTES 3.9 % (15-50); MCH 26.7 pg (26.0-34.0); MCHC 31.8 g/dL (31.0-37.0); MCV 83.8 fL (80.0-100.0); MEAN PLATELET VOLUME 7.5 fL (7.4-10.4); MONOCYTES 6.7 % (2-11); NEUTROPHILS 85.8 % (40-80); PLATELET COUNT 302 10x3/uL (130-400); RBC 2.66 10x6/uL (4.00-5.40); RDW 15.9 % (11.5-14.5); WBC 17.1 10x3/uL (4.8-10.8)
[2017-04-08 08:19] LABS: HEMOGLOBIN 7.1 g/dL (12-16)
[2017-04-08 08:39] LABS: ALBUMIN 1.5 g/dL (3.4-5.0); ANION GAP 17.1 mmol/L (8-16); BILIRUBIN - TOTAL 0.17 mg/dL (0.2-1.3); CALCIUM 8.5 mg/dL (8.5-10.1); CARBON DIOXIDE 13.7 mmol/L (21.0-32.0); CREATININE - SERUM 1.4 mg/dL (0.6-1.3); POTASSIUM - SERUM 3.8 mmol/L (3.5-5.1); PROTEIN - SERUM 5.3 g/dL (6.4-8.2)
--- NOTE | 2017-04-08 11:05 | NUR ---
STERILE DRESSING CHANGED PERFORMED TO RIGHT PORT. PT REFUSES TO HAVE NEEDLE EXCHANGE. PT TOLERATED WITHOUT COMPLAINTS.
--- NOTE | 2017-04-08 11:38 | NUR ---
PATIENT IN BED WITH EYES CLOSED RESTING QUIETLY AT THIS TIME. NO COMPLAINTS OR SIGNS OF DISTRESS. IV INTACT. PRO INTACT. CALL LIGHT WITHIN REACH.
[2017-04-08 12:00] VITALS: BP 107/69
[2017-04-08 16:35] VITALS: BP 123/66
--- NOTE | 2017-04-08 19:20 | NUR ---
RECIEVED SHIFT REPORT. PT IS LYING IN BED. ALERT AND ORIENTED AND ABLE TO VERBALIZE NEEDS. IV IS PATENT AND FLUIDS ARE RUNNING PER ORDER. PRO IS DRAINING URINE BY GRAVITY. PT STATES PAIN IS 1/10. PT IS AMBULATORY WITH ASSISTANCE. NO NEEDS ARE VERBALIZED AT THIS TIME. WILL CONTINUE TO MONITOR. SIDE RAILS ARE UP X 2. BED IS IN LOWEST POSITION. CALL LIGHT IS WITHIN REACH.
[2017-04-08 20:00] VITALS: BP 143/69
--- NOTE | 2017-04-08 20:08 | NUR ---
SHIFT ASSESSMENT COMPLETED. NIGHT MEDS GIVEN WITH NO PROBLEMS. PT C/O PAIN 08/15. ADMINISTERED PRESCRIBED PRN ULTRAM PER ORDER. DENIES FURTHER NEEDS. WILL MONITOR. SIDE RAILS X 2. BED LOW. CALL LIGHT IN REACH.
[2017-04-09] VITALS (13 sets, daily range): BP systolic 125–144; BP diastolic 54–83
--- NOTE | 2017-04-09 07:00 | NUR ---
REPORT RECEIVED, ASSUMED CARE OF PT. R PORT INFUSING FLUIDS ORDERED, DRSG C/D/I. PRO CATHETER IN PLACE, PATENT, DRAINING. NO SIGNS OF ACUTE DISTRESS, BED IN LOWEST POSITION, SIDE RAILS UP X 2, CALL LIGHT WITHIN REACH.
[2017-04-09 10:28] LABS: BASOPHILS 0.1 % (0-2); EOSINOPHILS 1.5 % (0-7); HEMATOCRIT 23.6 % (36.0-48.0); IMMATURE GRANULOCYTES 1.8 % (0-5); LYMPHOCYTES 3.1 % (15-50); MCH 26.8 pg (26.0-34.0); MCHC 31.8 g/dL (31.0-37.0); MCV 84.3 fL (80.0-100.0); MEAN PLATELET VOLUME 7.8 fL (7.4-10.4); MONOCYTES 6.9 % (2-11); NEUTROPHILS 86.6 % (40-80); RDW 16.2 % (11.5-14.5); WBC 19.2 10x3/uL (4.8-10.8)
[2017-04-09 10:30] LABS: PLATELET COUNT 412 10x3/uL (130-400)
[2017-04-09 10:36] LABS: HEMOGLOBIN 7.5 g/dL (12-16)
[2017-04-09 10:42] LABS: ALBUMIN 1.5 g/dL (3.4-5.0); ANION GAP 18.1 mmol/L (8-16); BILIRUBIN - TOTAL 0.16 mg/dL (0.2-1.3); CALCIUM 8.5 mg/dL (8.5-10.1); CARBON DIOXIDE 13.5 mmol/L (21.0-32.0); CREATININE - SERUM 1.4 mg/dL (0.6-1.3); POTASSIUM - SERUM 3.6 mmol/L (3.5-5.1); PROTEIN - SERUM 5.4 g/dL (6.4-8.2)
--- NOTE | 2017-04-09 14:10 | NUR ---
CONSENT FOR BLOOD TRANSFUSION SIGNED AND WITNESSED.
--- NOTE | 2017-04-09 14:25 | NUR ---
1ST UNIT PRBC STARTED, PT TOLERATING WITHOUT RASH, FEVER, ITCHING OR CHANGE IN VITALS SIGNS. WILL MONITOR IN ROOM FOR 15 MINUTES. WILL CONTINUE TO MONITOR VITALS AND PATIENT.
--- NOTE | 2017-04-09 14:39 | NUR ---
PT WITHOUT ADVERSE REACTION FROM BLOOD TRANSFUSION, WILL MONITOR.
[2017-04-10] VITALS: BP 146/65
[2017-04-10 04:00] VITALS: BP 149/68
--- NOTE | 2017-04-10 07:00 | NUR ---
REPORT RECEIVED, ASSUMED CARE OF PT. PT RESTING, EASILY AROUSED, NO NEEDS VOICED AT THIS TIME. PRO CATH PATENT, DRAINING, SECURED TO LEG WITH STAT-LOCK. R CHEST PORT INFUSING ORDERED, CLAUDIA C/D/I. BED IN LOWEST POSTIION, SIDE RAILS UP X 2, CALL LIGHT WITHIN REACH.
[2017-04-10 08:07] VITALS: BP 143/69
[2017-04-10 11:55] VITALS: BP 153/76
[2017-04-10 16:00] VITALS: BP 148/59
[2017-04-10 20:00] VITALS: BP 139/67
[2017-04-11] VITALS (7 sets, daily range): BP systolic 118–160; BP diastolic 60–74
--- NOTE | 2017-04-11 09:02 | NUR ---
PATIENT IN BED WITH IV INTACT. NO COMPLAINTS AT THIS TIME. PRO INTACT. CALL LIGHT WITHIN REACH.
--- NOTE | 2017-04-11 18:50 | NUR ---
PATIENT IN BED LAYING DOWN WATCHING TV. IV INTACT. NO COMPLAINTS. PRO INTACT. CALL LIGHT WITHIN REACH. NO COMPLAINTS OF PAIN. STATED GOING TO EAT DINNER LATER.
--- NOTE | 2017-04-11 22:00 | NUR ---
PT ALERT & ORIENTED. PRO CATH DRAINING EMERY URINE. DENIES PAIN AT THIS TIME. ASSESSMENT COMPLETE PER FLOW-SHEET. BROUGHT PT ICE WATER. NO OTHER NEEDS. WILL CONTINUE TO MONITOR.
[2017-04-12 04:00] VITALS: BP 159/69
--- NOTE | 2017-04-12 05:00 | NUR ---
PT PAD AND GOWN DAMP AND SMELLED OF URINE. PT SAID THE CATHETER ALWAYS LEAKS BUT THAT SHE HASN'T TOLD ANYBODY. PT RELUCTANTLY ALLOWED ME TO CHANGE HER PAD WELL HER GOWN BY HAVING HER ROLL EACH WAY. PT CAPABLE OF ROLLING BUT DID NOT WANT TO. WHEN I ATTEMPTED TO EXAMINE CATHETER AND DETERMINE WHY IT WAS LEAKING, PT FIRMLY REFUSED FOR ME TO TO SO. SHE YELLED "DO NOT PULL MY LEG!" WHICH I HAD NOT DONE. I SAID, "I'M NOT TOUCHING YOUR LEG (SHOWING HER MY HANDS) BUT, I NEED YOU TO MOVE THEM APART SO I CAN EXAMINE YOUR CATHETER FOR LEAKING." SHE SAID "NO, WE WON'T BE DOING THAT RIGHT NOW. IT IS FINE, IT HAS ALWAYS LEAKED A LITTLE. I JUST NEED A PAIN PILL NOW."
[2017-04-12 05:40] LABS: BASOPHILS 0.1 % (0-2); EOSINOPHILS 1.7 % (0-7); HEMATOCRIT 29.6 % (36.0-48.0); HEMOGLOBIN 9.8 g/dL (12-16); IMMATURE GRANULOCYTES 1.6 % (0-5); LYMPHOCYTES 4.5 % (15-50); MCH 27.4 pg (26.0-34.0); MCHC 33.1 g/dL (31.0-37.0); MCV 82.7 fL (80.0-100.0); MEAN PLATELET VOLUME 8.2 fL (7.4-10.4); MONOCYTES 6.9 % (2-11); NEUTROPHILS 85.2 % (40-80); PLATELET COUNT 424 10x3/uL (130-400); RBC 3.58 10x6/uL (4.00-5.40); WBC 16.7 10x3/uL (4.8-10.8)
[2017-04-12 06:21] LABS: ALBUMIN 1.4 g/dL (3.4-5.0); BILIRUBIN - TOTAL 0.31 mg/dL (0.2-1.3); CALCIUM 8.9 mg/dL (8.5-10.1); CARBON DIOXIDE 14.1 mmol/L (21.0-32.0); CREATININE - SERUM 1.4 mg/dL (0.6-1.3); POTASSIUM - SERUM 3.1 mmol/L (3.5-5.1); PROTEIN - SERUM 5.4 g/dL (6.4-8.2)
--- NOTE | 2017-04-12 07:00 | NUR ---
REPORT RECIEVED, ASSUMED CARE. PATIENT IN BED WITH IV INTACT. NO COMPLAINTS, CALL LIGHT WITHIN REACH.
[2017-04-12 08:10] VITALS: BP 142/72
--- NOTE | 2017-04-12 10:15 | NUR ---
PATIENT IN BED LAYING ON BACK. VETERINARY PATHOLOGIST OFFERED A BATH AT THIS TIME AND RPO CARE. PATIENT STATED NO SHE WAS NOT DOING IT. TRIED TO EXPLAIN TO PATIENT THAT UTI WOULD GET WORSE IF ANY BACTERIA FROM NOT BEING CLEANED WELL GOT IN HER URETHRA BY PRO. STATED SHE WAS FINE AT THIS TIME. IV INTACT. CALL LIGHT WITHIN REACH.
[2017-04-12 11:52] VITALS: BP 143/66
--- NOTE | 2017-04-12 13:00 | NUR ---
PATIENT IN BED AT THIS TIME. IV INTACT. NO COMPLAINTS OF SIGNS OF DISTRESS. CALL LIGHT WITHIN REACH.
[2017-04-12 16:13] VITALS: BP 150/91
--- NOTE | 2017-04-12 18:59 | NUR ---
PATIENT IN BED WITH IV INTACT. NO COMPLAINTS CALL LIGHT WITHIN REACH. PRO INTACT.
[2017-04-12 21:22] VITALS: BP 163/30
--- NOTE | 2017-04-12 22:30 | NUR ---
SPOKE WITH PT'S SON ABOUT PT REFUSING ALL BATHS AND PRO CARE. SON SPOKE WITH PT AND SHE AGREED TO BED BATH AND PRO CARE. KELI SOTO GAVE BED BATH AND PERFORMED PRO CARE. ASSESSED POR THAT HAS BEEN LEAKING. ADDED 3 MLS SALINE TO BALLOON. GAVE PT ULTRAM FOR PAIN 08/15. NO OTHER NEEDS. WILL CONTINUE TO MONITOR.
[2017-04-13] VITALS: BP 137/78
[2017-04-13 04:00] VITALS: BP 165/78
--- NOTE | 2017-04-13 07:15 | NUR ---
ASSESSMENT PER FLOW SHEET.PT WITHOUT DISTRESS.DENIES NEEDS AT PRESENT.CALL LIGHT USE INSTRUCTED.
[2017-04-13 08:00] VITALS: BP 156/78
--- NOTE | 2017-04-13 11:07 | NUR ---
NUTRITION F/U CHART REVIEWED. RENAL LABS WNL. NO RENAL MD ON BOARD. POOR PO INTAKE SINCE ADMIT EVEN WITH MEGACE. WILL CHANGE DIET TO REGULAR IN HOPES OF IMPROVING PO INTAKE. RD FOLLOWING
[2017-04-13 12:14] VITALS: BP 134/65
--- NOTE | 2017-04-13 15:19 | NUR ---
REMAINS WITHOUT DISTRESS.REFUSED PT THIS AFTERNOON.
[2017-04-13 16:39] VITALS: BP 146/70
--- NOTE | 2017-04-13 17:00 | NUR ---
PAIN MEDS ORDERED.PT SATES PAIN 3/10 SCALE TO RIGHT LEG.
--- NOTE | 2017-04-13 19:00 | NUR ---
REPORT RECEIVED AND ASSESSMENT COMPLETED. SEE FLOWSHEET FOR FULL DETAILS. PT RIGHT LEG IS VERY EDEMATOUS. 3+ LEFT LEG 2+ PRO IN PLACE. PT REFUSED REPOSITIONING, AND BATH. DVT PRESENT ON RIGHT LEG. WILL MONITOR THROUGHOUT SHIFT.
[2017-04-13 20:00] VITALS: BP 153/74
--- NOTE | 2017-04-13 21:00 | NUR ---
2100 MEDS GIVEN. NO OTHER CHANGES IN STATUS AT THIS TIME. WILL CONTINUE TO MONITOR
--- NOTE | 2017-04-13 23:00 | NUR ---
PAIN MED GIVEN TO PT FOR BACK PAIN. WILL REASSESS NEEDED.
[2017-04-14] VITALS: BP 166/81
--- NOTE | 2017-04-14 01:00 | NUR ---
NO CHANGES IN STATUS AT THIS TIME. WILL CONTINUE TO MONITOR
--- NOTE | 2017-04-14 03:00 | NUR ---
PT ASSISTED TO BED MENDIETA FOR BM. PT WAS UNABLE TO PRODUCE AT THIS TIME. REMOVED FROM BED MENDIETA. NO OTHER CHANGES AT THIS TIME. WILL CONTIUE TO MONITOR
[2017-04-14 04:00] VITALS: BP 175/92
--- NOTE | 2017-04-14 05:00 | NUR ---
PT B/P ELEVATED, AND PT COMPLAINS OF DISCOMFORT. ULTRAM GIVEN. PT REFUSED MORPHINE BECAUSE SHE STATED IT MADE HER FEEL "SICK"
--- NOTE | 2017-04-14 07:00 | NUR ---
REPORT RECIEVED ASSSUMED CARE. PATIENT IN BED WITH IV INTACT. NO COMPLAINTS. CALL LIGHT WITHIN REACH.
--- NOTE | 2017-04-14 07:00 | NUR ---
REPORT RECIEVED ASSUMED CARE. PATIENT IN BED WITH IV INTACT. NO COMPLAINTS AT HTIS TIME. CALL LIGHT WITHIN REACH.
[2017-04-14 08:20] VITALS: BP 186/83
[2017-04-14 12:47] VITALS: BP 136/76
--- NOTE | 2017-04-14 13:00 | NUR ---
PATIENT SITTING UP IN CHAIR AT THIS TIME. IV INTACT. CALL LIGHT WITHIN REACH.
[2017-04-14 15:54] VITALS: BP 149/87
--- NOTE | 2017-04-14 18:37 | NUR ---
PATIENT SITTING UP ON SIDE OF BED. NGT INTACT. NO COMPLAINTS AT THIS TIME. STATED FEELING BETTER. FAMILY AT BEDSIDE. CALL LIGHT WITHIN REACH. IV INTACT.
--- NOTE | 2017-04-14 18:38 | NUR ---
PATIENT IN BED WITH IV INTACT. ENCOURAGED PATIENT TO EAT DINNER. PATIENT STATED SHE HAD NOT ATE BREAKFAST OR LUNCH. NO COMPLAINTS OR SIGNS OF DISTRESS. CALL LIGHT WITHIN REACH.
--- NOTE | 2017-04-14 19:00 | NUR ---
REPORT RECEIVED AND ASSESSMENT COMPLETED. SEE FLOWSHEET FOR FULL DETAILS. NO CHANGES IN STATUS SINCE LAST CARE. WILL MONITOR THROUGHOUT SHIFT.
[2017-04-14 20:00] VITALS: BP 154/86
--- NOTE | 2017-04-14 21:00 | NUR ---
2100 MEDS GIVEN. NO CHANGES IN STATUS AT THIS TIME. WILL MONITOR
--- NOTE | 2017-04-14 23:00 | NUR ---
PT B/P ELEVATED. WILL CONTACT MD FOR ORDERS. WILL MONITOR
[2017-04-15] VITALS: BP 181/82
--- NOTE | 2017-04-15 01:00 | NUR ---
ORDERS RECEIVED FOR 0.1 CATAPRES TAB.
[2017-04-15 04:00] VITALS: BP 174/89
--- NOTE | 2017-04-15 07:00 | NUR ---
REPORT RECIEVED ASSUMED CARE. PATIENT IN BED WITH IV INTACT. NO COMPLAINTS AT THIS TIME. CALL LIGHT WITHIN REACH.
[2017-04-15 08:00] VITALS: BP 163/88
[2017-04-15 12:26] VITALS: BP 171/87
--- NOTE | 2017-04-15 12:30 | NUR ---
PATIENT IN BED WITH IV INTACT. NO COMPLAINTS AT THIS TIME. SITTING UP WATCHING TV. CALL LIGHT WITHIN REACH.
[2017-04-15 16:07] VITALS: BP 156/76
--- NOTE | 2017-04-15 16:35 | NUR ---
PATIENT IN BED WITH EYES CLOSED RESTING QUIETLY. IV INTACT. NO COMPLAINTS. PRO INTACT. CALL LIGHT WITHIN REACH.
--- NOTE | 2017-04-15 18:55 | NUR ---
PATIENT RECIEVED MIRALAX AT THIS TIME. NO COMPLAINTS OR SIGNS OF DISTRESS. IV INTACT. CALL LIGHT WITHIN REACH.
--- NOTE | 2017-04-15 19:30 | NUR ---
REC'D LYING IN BED. ALERT AND ORIENTED X4. DENIED PAIN AT THIS TIME. DENIED NEEDS AT THIS TIME. INSTRUCTED TO CALL IF NEEDED ANYTHING, VERBALIZED UNDERSTANDING. NO DISTRESS NOTED. WILL CONT TO MONITOR.
[2017-04-15 20:00] VITALS: BP 161/82
--- NOTE | 2017-04-15 23:46 | NUR ---
RECIEVED REPORT. ASSUMED PT CARE.
[2017-04-16] VITALS: BP 182/99
[2017-04-16 04:00] VITALS: BP 170/88
[2017-04-16 07:51] VITALS: BP 187/96
--- NOTE | 2017-04-16 08:15 | NUR ---
ASSESSMENT PER FLOW SHEET.PT WITHOUT DISTRESS.DENIES NEEDS AT PRESENT. PT REFUSES BREAKFAST TRAY.CALL LIGHT IN REACH.
[2017-04-16 12:10] VITALS: BP 173/80
--- NOTE | 2017-04-16 13:14 | NUR ---
CALL TO DR. MOHAN'S OFFICE RE.. PT C/O CONSTIPATION. WANTS MOM OR MAG CITRATE
--- NOTE | 2017-04-16 13:49 | NUR ---
REFUSES SUPPOSITORY ORDERED. INSTRUCTED PT HAD CALL IN FOR POSS MOM OR MAG CITRATE.
[2017-04-16 15:29] VITALS: BP 192/103
--- NOTE | 2017-04-16 16:51 | NUR ---
MAG CITRATE ORDERED. PT SILL VERY RELUCTANT TO DRINK. MAG CITRATE PLACED ON ICE FOR PT. INSTRUCTED PT THAT WAS ONE TIME ORDER. PT REMAINS WITHOUT CHANGE FROM INITIAL SHIFT ASSESSMENT.CONT PLAN OF CARE
[2017-04-16 17:47] LABS: ALBUMIN 1.8 g/dL (3.4-5.0); ANION GAP 19.8 mmol/L (8-16); BILIRUBIN - TOTAL 0.52 mg/dL (0.2-1.3); CALCIUM 9.5 mg/dL (8.5-10.1); CARBON DIOXIDE 11.9 mmol/L (21.0-32.0); CREATININE - SERUM 1.1 mg/dL (0.6-1.3); POTASSIUM - SERUM 3.7 mmol/L (3.5-5.1); PROTEIN - SERUM 6.1 g/dL (6.4-8.2)
[2017-04-16 17:49] LABS: INR 1.47 (0.85-1.17); PROTIME 17.8 SECONDS (11.6-15.0)
[2017-04-16 17:50] LABS: HEMATOCRIT 33.6 % (36.0-48.0); HEMOGLOBIN 11.1 g/dL (12-16); MCH 27.5 pg (26.0-34.0); MCV 83.2 fL (80.0-100.0); MEAN PLATELET VOLUME 8.8 fL (7.4-10.4); PLATELET COUNT 488 10x3/uL (130-400); RBC 4.04 10x6/uL (4.00-5.40); RDW 18.2 % (11.5-14.5)
[2017-04-16 18:26] LABS: EOSINOPHILS 1 % (0-7); LYMPHOCYTES 3 % (15-50); MONOCYTES 2 % (2-11); NEUTROPHILS 87 % (40-80)
[2017-04-16 18:27] LABS: PLATELET ESTIMATE INCREASED
[2017-04-16 19:49] VITALS: BP 163/96
[2017-04-17] VITALS: BP 168/93
[2017-04-17 04:00] VITALS: BP 178/91
--- NOTE | 2017-04-17 07:00 | NUR ---
REPORT RECIEVED ASSUMED CARE. PATIENT IN BED WITH IV INTACT. NO COMPLAINTS AT THIS TIME. EYES CLOSED RESTING QUIETLY. CALL LIGHT WITHIN REACH.
[2017-04-17 08:01] VITALS: BP 179/95
--- NOTE | 2017-04-17 09:30 | NUR ---
PATIENT IN BED WITH IV INTACT. NO COMPLAINTS. LAYING IN BED TALKING ON THE PHONE AT THIS TIME. CALL LIGHT WITHIN REACH.
--- NOTE | 2017-04-17 10:25 | NUR ---
PT IN WITH PATIENT.
[2017-04-17 12:27] VITALS: BP 149/97
--- NOTE | 2017-04-17 13:02 | NUR ---
[facility] called and stated that Dr Jung wanted her to go and talk to the patient. Patient refused to talk to her ([facility])
[2017-04-17 16:04] VITALS: BP 174/86
--- NOTE | 2017-04-17 18:45 | NUR ---
PATIENT IN BED WITH IV INTACT. NO COMPLAINTS AT THIS TIME. IV INTACT. ENCOURAGED PATIENT TO USE A SUPPOSITORY TONIGHT FOR A BM AFTER FAMILY LEAVES. VERBALIZED UNDERSTANDING. CALL LIGHT WITHIN REACH.
[2017-04-17 20:00] VITALS: BP 191/88
[2017-04-18] VITALS: BP 160/50
[2017-04-18 04:00] VITALS: BP 187/86
--- NOTE | 2017-04-18 04:49 | NUR ---
ASSESSED AT THE BEGINNING OF THE SHIFT. PT IS ALERT AND ORIENTED, ABLE TO VERBALIZE NEEDS. SHE IS REFUSING TO LET US TURN HER MUCH EVEN THOUGH SHE KNOWS HER BOTTOM IS GETTING RED. THERE IS A PRO CATH IN PLACE AND PRO CARE WAS DONE ON IT. SHE HAS BEEN GIVEN PAIN MEDS SHE REQUESTED AND SLEPT SOME OF THE NIGHT. HER SON AND OTHERS VISITED HER IN THE EARLY PART OF THE SHIFT WHICH SEEMED TO MAKE HER FEEL GOOD. THE BED IS LOW, RAILS UP X'S 2 WITH THE CALL LIGHT AT HAND.
[2017-04-18 07:58] VITALS: BP 185/85
--- NOTE | 2017-04-18 09:05 | NUR ---
PATIENT IN RIGHT LATERAL POSITION RESTING WITH EYES CLOSED. RESPIRATIONS EVEN AND UNLABORED. SIDE RAILS UP X2. BED IN LOW POSITION. CALL LIGHT IN REACH.
[2017-04-18 12:43] VITALS: BP 142/90
[2017-04-18 15:49] VITALS: BP 161/81
[2017-04-18 20:00] VITALS: BP 140/69
[2017-04-19] VITALS: BP 133/68
[2017-04-19 04:00] VITALS: BP 163/79
--- NOTE | 2017-04-19 07:15 | NUR ---
REPORT RECEIVED, ASSUMED CARE OF PT. RESTING, EASILY AROUSED. R PORT INFUSING ORDERED, DRSG C/D/I. BED IN LOWEST POSITION, SIDE RAILS UP X 2, CALL LIGHT WITHIN REACH.
[2017-04-19 08:30] VITALS: BP 168/87
[2017-04-19 12:12] VITALS: BP 172/90
[2017-04-19 16:08] VITALS: BP 166/78
--- NOTE | 2017-04-19 19:25 | NUR ---
PATIENT RESTING IN BED AND DENIES NEEDS AT THIS TIME. PATIENT DENIES PAIN AT THIS TIME. BED IN LOWEST POSITION AND CALL LIGHT WITHIN REACH. ENCOURAGED THE PATIENT TO CALL IF SHE HAS NEEDS.
[2017-04-19 20:34] VITALS: BP 169/87
--- NOTE | 2017-04-19 23:08 | NUR ---
NOTIFIED BY KELI TOTH PT'S BP 192/93. ADMINISTERED CLONIDINE PER ORDERS
[2017-04-20] VITALS: BP 192/39
[2017-04-20 04:00] VITALS: BP 106/61
[2017-04-20 07:58] VITALS: BP 140/70
--- NOTE | 2017-04-20 08:00 | NUR ---
PT ASSESSMENT COPLETE PT WITH CONCENTRATED URINE NOTED TO PRO CATHETER. PT COMPLAINS OF CONSTIPATION STATES 9 DAYS SINCE LAST BM WILL TREAT PER ORDER
[2017-04-20 11:58] VITALS: BP 146/71
--- NOTE | 2017-04-20 12:45 | NUR ---
PT ATTEMPTING TO HAVE BM HARD STOOL NOTED AT ANAL OPENING PT ASSISTED IN REMOVAL OF FECAL MATERIAL.
--- NOTE | 2017-04-20 16:23 | NUR ---
PT HERE FOR UTI AND WEAKNESS FOR THIS VISIT PT DENIES NEEDS AT THIS TIME SRX2 BED AT LOWEST SETTING CALL LIGHT WITHIN REACH WILL CONTINUE TO MONITOR
[2017-04-20 16:36] VITALS: BP 140/68
[2017-04-20 20:00] VITALS: BP 127/84
--- NOTE | 2017-04-20 20:10 | NUR ---
PATIENT RESTING IN BED AND DENIES NEEDS AT THIS TIME. ASSESSMENT COMPLETE. BED IN LOWEST POSITION AND CALL LIGHT WITHIN REACH. ENCOURAGED THE PATIENT TO CALL IF SHE HAS NEEDS.
--- NOTE | 2017-04-21 02:00 | NUR ---
GAVE PATIENT A HEAT PACK FOR HER BACK PER HER REQUEST.
[2017-04-21 04:00] VITALS: BP 168/78
[2017-04-21 05:27] LABS: BASOPHILS 0.1 % (0-2); EOSINOPHILS 0 % (0-7); HEMATOCRIT 27.7 % (36.0-48.0); HEMOGLOBIN 9.2 g/dL (12-16); IMMATURE GRANULOCYTES 1.2 % (0-5); LYMPHOCYTES 4.9 % (15-50); MCH 26.9 pg (26.0-34.0); MCHC 33.2 g/dL (31.0-37.0); MEAN PLATELET VOLUME 9.2 fL (7.4-10.4); MONOCYTES 5.5 % (2-11); NEUTROPHILS 88.3 % (40-80); PLATELET COUNT 582 10x3/uL (130-400); RBC 3.42 10x6/uL (4.00-5.40); RDW 18.7 % (11.5-14.5); WBC 16.1 10x3/uL (4.8-10.8)
[2017-04-21 06:18] LABS: ALBUMIN 1.8 g/dL (3.4-5.0); ANION GAP 16.8 mmol/L (8-16); BILIRUBIN - TOTAL 0.38 mg/dL (0.2-1.3); CALCIUM 9.5 mg/dL (8.5-10.1); CARBON DIOXIDE 16.4 mmol/L (21.0-32.0); CREATININE - SERUM 1.3 mg/dL (0.6-1.3); PROTEIN - SERUM 5.7 g/dL (6.4-8.2)
[2017-04-21 06:20] LABS: POTASSIUM - SERUM 2.2 mmol/L (3.5-5.1)
--- NOTE | 2017-04-21 06:26 | NUR ---
PAGED KALIA, COMPLIANCE REVIEWER FOR DR. MOHAN, IN REGARDS TO PT'S K+ 2.2
--- NOTE | 2017-04-21 06:42 | NUR ---
PLACED PT ON [facility] PROTOCOL PER KALIA
[2017-04-21 08:32] VITALS: BP 156/75
--- NOTE | 2017-04-21 09:00 | NUR ---
PT GIVEN BED BATH AND PRO CATHETER CHANGED PER STERILE TECHNIQUE ALL PARTS OF KIT USED PT TOLERATED WELL IMMEDIATE RETURN OF BLOOD TINGED URINE.
[2017-04-21 11:33] VITALS: BP 155/75
--- NOTE | 2017-04-21 12:59 | NUR ---
Spoke with patient today about the possibility of a skilled facility. She yelled at me stating she was not going anywhere "not there not to Hospice, I am staying here till I am better enough to go" Patient had tears in her eyes and asked me to leave. CM will continue to follow and assist as needed.
--- NOTE | 2017-04-21 13:33 | NUR ---
NUTRITION F/U DIET CHANGED TO REG. NO APPRECIABLE IMPROVEMENT IN PO INTAKE. MD AND CASE MGMT NOTE REVIEWED. WILL CONTINUE TO PROVIDE DIET. RD FOLLOWING
[2017-04-21 15:08] VITALS: BP 151/82
--- NOTE | 2017-04-21 17:19 | NUR ---
RESTING QUIETLY IN BED. C/O CONSTIPATION. WOULD LIKE SOME PRUNES WITH SUPPER. WILL NOTIFY KITCHEN. NO C/O AT THIS TIME. DENIES NEEDS.
[2017-04-21 20:00] VITALS: BP 163/81
--- NOTE | 2017-04-21 21:30 | NUR ---
PATIENT RESTING IN BED AND DENIES NEEDS AT THIS TIME. PATIENT DENIES NEEDS AT THIS TIME. BED IN LOWEST POSITION AND CALL LIGHT WITHIN REACH. ENCOURAGED THE PATIENT TO CALL IF SHE HAS NEEDS.
[2017-04-22] VITALS: BP 164/84
--- NOTE | 2017-04-22 01:00 | NUR ---
PATIENT HAS NOT FINISHED DRINKING HER FIRST DOSE OF POTASSIUM AND IS RESTING WITH EYES CLOSED.
[2017-04-22 04:00] VITALS: BP 155/76
[2017-04-22 06:36] LABS: MAGNESIUM - SERUM 1.7 mg/dL (1.8-2.4)
[2017-04-22 08:53] VITALS: BP 165/68
[2017-04-22 12:17] VITALS: BP 139/70
--- NOTE | 2017-04-22 12:56 | NUR ---
pt seen for account support specialist note. sitting up in chair currently at bedside. weir draining yellow urine. right port noted with dressing and biopatch intact-currently recieving k and mag riders. pt states she slept last night with no pain at present. states she is going to stay here till she can walk out the door. call light in reach.
--- NOTE | 2017-04-22 13:04 | NUR ---
1200 spoke with Ms. Diaz briefly regarding dc plans and wishes. Ms. Diaz states to me that she wishes to return to her apartment and resume home health with [facility]. She would like to try Chemo again. She states she is going to fight this. Ms. Diaz states she has recently been reconcilled with her son that lives in [place], [place]. He and her grandchildren have been to see her. This has made her very happy. She denies needs or concerns. She states she is trying to eat a little more to get stronger. I asked if she would like to talk to a dietitian or needed different meal selections and she said NO. Provided Ms. Diaz a business card of a rastafarian that she can contact if she needs community assistance or pastoral care after discharge if she wishes. FELIBERTO Pereira notified of above.
--- NOTE | 2017-04-22 14:11 | NUR ---
PT IS SITTING UP IN CHAIR, LUNCH TRAY IN FRONT OF PT, STATED DOES NOT FEEL LIKE EATING BUT WANTS HER TRAY LEFT. STATED HAS GAS AND DOES NOT FEEL LIKE EATING. CALL LIGHT IN REACH
--- NOTE | 2017-04-22 15:20 | NUR ---
SPOKE TO AIRPLANE DESIGNER IN REGARDS TO REDRAW FOR K+ AND MAG LEVELS. 2 TECHS ATTEMPTED AND UNABLE TO OBTAIN BLOOD, ADVISED I WILL TRY
--- NOTE | 2017-04-22 16:03 | NUR ---
PT STATED HAVING PAIN IN LOWER BACK, BILATERAL PITTING EDEMA IN LOWER EXTREMITIES, TURNED SCD'S ON AND ADMIN PRN PAIN MED
[2017-04-22 17:12] VITALS: BP 127/70
[2017-04-22 19:36] LABS: POTASSIUM - SERUM 3.2 mmol/L (3.5-5.1)
[2017-04-22 19:37] LABS: MAGNESIUM - SERUM 2.3 mg/dL (1.8-2.4)
[2017-04-22 20:00] VITALS: BP 165/81
--- NOTE | 2017-04-22 22:18 | NUR ---
REC'D LYING IN BED. WLERT AND ORIENTED X4. REPORTED PAIN 2/10. WILL ADMIN PAIN MEDS PRESCRIBED. IS WANTING WARM PACK REHEATED. NO DISTRESS NOTED. INSTRUCTED TO CALL IF NEEDED ANYTHING, VERBLAIZED UNDERSTANDING. WILL CONT TO MONITOR.
--- NOTE | 2017-04-22 22:58 | NUR ---
REFUSED CVL DRESSING CHANGE TONIGHT. EDUCATED ON THE RISKS OF NOT HAVING IT CHANGED, VERBALIZED UNDERSTANDING.
[2017-04-23] VITALS: BP 167/80
--- NOTE | 2017-04-23 03:12 | NUR ---
PT ALERT AND ORIENTED. STATES PAIN HAS DECREASED WITH PAIN MEDICATION AND HEATING PAD. CALL LIGHT IN REACH, BED LOW. DENIES ANY OTHER NEEDS AT THIS TIME.
[2017-04-23 04:00] VITALS: BP 159/87
--- NOTE | 2017-04-23 07:36 | NUR ---
AM ROUNDS- PT IN BED, STATES THAT SHE DOES NOT FEEL WELL, DID NOT GET MUCH REST DURING THE NIGHT. PT A/O X4, RESP EVEN AND UNLABORED. RT INFUSAPORT INFUSING D5W AT 30CC/HR. PRO DRAINGING YELLOW URINE TO GRAVITY. 3+ PITTING EDEMA NOTED TO BILAT LOWER EX. BED LOW AND WHEELS LOCKED, BEDSIDE RAILS X2, CALL LIGHT IN REACH, NAD NOTED, WILL CONTINUE TO MONITOR.
--- NOTE | 2017-04-23 08:22 | NUR ---
AM MEDS GIVEN AT THIS TIME. PT DENIES ANY NEEDS AT THIS TIME. CALL LIGHT IN REACH, NAD NOTED, WILL CONTINUE TO MONITOR.
[2017-04-23 08:33] VITALS: BP 168/82
--- NOTE | 2017-04-23 09:15 | NUR ---
ADMINISTERED 50MG OF NORCO FOR PAIN LEVEL OF 10/10. PT DENIES ANY NEEDS AT THIS TIME. CALL LIGHT IN REACH, NAD NOTED, WILL CONTINUE TO MONITOR.
[2017-04-23 12:08] VITALS: BP 166/86
--- NOTE | 2017-04-23 14:30 | NUR ---
CALLED PHARMACY AD SPOKE WITH AC, INFORMED HER THAT ORDER FOR K BLOOD DRAW WAS ORDERED FOR 11AM AND IT HAS NOT BEEN DONE YEY. AC STATED THAT THEY ARE HAVING TROUBLE WITH [facility] AND THEY WERE NOT ABLE TO SEE ANY ORDERS, BUT IT IS WORKING NOW AND SHE WILL HAVE SOMEONE COME AND DRAW PT'S BLOOD.
[2017-04-23 16:23] VITALS: BP 165/95
--- NOTE | 2017-04-23 19:27 | NUR ---
PT IS LYING IN BED ON BACK, STATED HAS BEEN IN PAIN ALL DAY AND UNABLE TO EAT OR EVEN GET UP. ASKED PAIN LEVEL AND SHE STATED OK FOR NOW BUT REQUESTS PAIN MEDICATION WITH 2100 MEDS. PREFERS TO SPEAK WITH DR RAMSAY AND NOT HIS PLATE GAUGER AND ALSO REQUESTED THAT TRES IN LAB DRAW HER BLOOD FROM NOW ON, WILL RELAY MESSAGE TO LAB, BED IN LOW POSITION, CALL LIGHT IN REACH
[2017-04-23 20:00] VITALS: BP 136/77
--- NOTE | 2017-04-24 04:51 | NUR ---
ASSESSED, PT IS AWAKE WITH HER EYES CLOSED AND LISTENING TO HER TV. HER RESPIRATIONS ARE EASY AND SHE IS NOT IN ANY DISTRESS. SHE IS STILL REFUSING TO TAKE BATHS ALOT AND SMELLS BAD.THE BED IS LOW, RAILS UP X'S 2 WITH THE CALL LIGHT AT HAND.
[2017-04-24 06:37] LABS: MAGNESIUM - SERUM 2.2 mg/dL (1.8-2.4); PHOSPHOROUS 2.6 mg/dL (2.5-4.9)
[2017-04-24 08:18] VITALS: BP 181/85
--- NOTE | 2017-04-24 08:21 | NUR ---
AWAKE AND ALERT. ORIENTED X3. NO C/O AT THIS TIME. "I JUST WANT TO SLEEP". LUNGS ARE CLEAR BILATERALLY, NO COUGH NOTED. SKIN IS INTACT WITHOUT REDNESS. 1-2 PLUS EDEMA NOTED TO BILATERAL LOWER EXTREMETIES. PRO PATENT WITH CLEAR YELLOW URINE. RIGHT PORT PATNET WITHOUT REDNESS AT INSERTION SITE. DENIES NEEDS. BREAKFAST SERVED IN ROOM.
--- NOTE | 2017-04-24 08:40 | NUR ---
REQUESTED AND GIVEN 50MG ULTRAM PO FOR C/O BACK PAIN. ALSO PLACED WARM BLANKETS TO BACK FOR COMFORT. WILL MONITOR.
--- NOTE | 2017-04-24 11:00 | NUR ---
REPORTS PAIN RELIEVED FINALLY. DENIES NEEDS.
[2017-04-24 11:51] VITALS: BP 183/90
--- NOTE | 2017-04-24 12:15 | NUR ---
LUNCH TRAY SERVED IN ROOM. FEEDS SELF.
--- NOTE | 2017-04-24 16:35 | NUR ---
REQUESTED AND GIVEN ONE 50MG ULTRAM PO FOR C/O BACK PAIN LEVEL 4. WILL MONITOR.
[2017-04-24 17:33] VITALS: BP 174/79
--- NOTE | 2017-04-24 18:25 | NUR ---
REFUSED TO EAT ANY SUPPER. REFUSED OFFER OF ALTERNATIVE. DENIES NEEDS. NO CHANGES NOTED.
[2017-04-24 20:00] VITALS: BP 177/85
[2017-04-25] VITALS: BP 175/86
[2017-04-25 04:38] VITALS: BP 172/83
[2017-04-25 07:36] LABS: BASOPHILS 0.2 % (0-2); EOSINOPHILS 1.3 % (0-7); HEMATOCRIT 25.8 % (36.0-48.0); HEMOGLOBIN 8.6 g/dL (12-16); IMMATURE GRANULOCYTES 1.1 % (0-5); LYMPHOCYTES 5.3 % (15-50); MCH 27.3 pg (26.0-34.0); MCHC 33.3 g/dL (31.0-37.0); MCV 81.9 fL (80.0-100.0); MEAN PLATELET VOLUME 8.6 fL (7.4-10.4); MONOCYTES 5.7 % (2-11); NEUTROPHILS 86.4 % (40-80); RBC 3.15 10x6/uL (4.00-5.40); WBC 19.4 10x3/uL (4.8-10.8)
[2017-04-25 07:40] LABS: PLATELET COUNT 420 10x3/uL (130-400)
[2017-04-25 07:53] LABS: ALBUMIN 1.7 g/dL (3.4-5.0); ANION GAP 17.7 mmol/L (8-16); BILIRUBIN - TOTAL 0.4 mg/dL (0.2-1.3); CARBON DIOXIDE 15.6 mmol/L (21.0-32.0); CREATININE - SERUM 1.4 mg/dL (0.6-1.3); POTASSIUM - SERUM 3.3 mmol/L (3.5-5.1); PROTEIN - SERUM 5.7 g/dL (6.4-8.2)
--- NOTE | 2017-04-25 08:00 | NUR ---
AWAKE AND ALERT. ORIENTED X3. C/O INCREASED BACK PAIN LEVEL 8. REQUESTED AND GIVEN ONE 50MG ULTRAM PO FOR SAME. WILL MONITOR. LUNGS ARE CLEAR BIALTERALLY, NO COUGH NOTED. SKIN IS INTACT WITH SOME REDNESS NOTED TO COCCYX AREA. REPOSITIONED IN BED FOR COMFORT. RIGHT PORT PATENT WITHOUT REDNESS AT INSERTION SITE. DENIES NEEDS.
[2017-04-25 08:36] VITALS: BP 175/85
--- NOTE | 2017-04-25 10:36 | NUR ---
GIVEN BED BATH PER STAFF. LINENS CHANGED. DENIES NEEDS.
--- NOTE | 2017-04-25 12:15 | NUR ---
LUNCH SERVED IN ROOM. REFUSED TO EAT AT THIS TIME. DENIES NEEDS.
[2017-04-25 13:43] VITALS: BP 161/87
--- NOTE | 2017-04-25 14:00 | NUR ---
RESTING QUIETLY IN BED. DENIES NEEDS.
[2017-04-25 17:19] VITALS: BP 195/81
--- NOTE | 2017-04-25 17:21 | NUR ---
SUPPER TRAY SERVED IN ROOM.
--- NOTE | 2017-04-25 18:13 | NUR ---
SITTING UP IN BED EATING SUPPER. DENIES NEEDS. NO CHANGES NOTED.
[2017-04-25 20:40] VITALS: BP 163/79
--- NOTE | 2017-04-25 23:50 | NUR ---
ASSESSED AT THE BEGINNING OF THE SHIFT. PT WAS SLEEPING AND DID NOT WAKE WHILE NURSE WAS IN THE ROOM. HE IS ORIENTED, AND DAY SHIFT GAVE HER A BEDBATH TODAY. THE ROOM SILL SMELLS BAD. SHE CAN SWALLOW HER MEDS AND REFUSED TO BE PULLED UP IN THE BED OR LET US TURN HER FOR REDNESS ON HER BOTTOM. SHE HAS A PRO CATH IN PLACE AND THE URINE ID DARK AND CONCENTRATED. THE BED IS LOW, RAILS UP X'S 2 WITH THE CALL LIGHT AT HAND A BED ALARM IN PLACE.
--- NOTE | 2017-04-26 00:48 | NUR ---
REPORT RECEIVED AND CARE OF PT ASSUMED. PT RESTING QUIETLY IN LOW LEPE'S POSITION. RIGHT IP PATENT WITH NS INFUSING AT 30 ML / HR. PRO CATHETER DRAINING TO GRAVITY WITH DARK YELLOW URINE IN COLLECTION BAG. WILL MONITOR CLOSELY FOR NEEDS.
[2017-04-26 01:22] VITALS: BP 165/80
[2017-04-26 04:08] VITALS: BP 152/77
--- NOTE | 2017-04-26 07:00 | NUR ---
REPORT RECIEVED ASSUMED CARE. PATIENT IN BED WITH IV INTACT. NO COMPLAINTS AT THIS TIME. CALL LIGHT WITHIN REACH.
[2017-04-26 08:25] VITALS: BP 175/88
--- NOTE | 2017-04-26 10:45 | NUR ---
PATIENT IN BED AT THIS TIME. BACK IS HURTING. PAIN MEDS AND HEAT PACKS FOR PAIN. IV INTACT. CALL LIGHT WITHIN REACH.
[2017-04-26 12:25] VITALS: BP 172/83
--- NOTE | 2017-04-26 15:00 | NUR ---
PATIENT RECIEVED BB AT THIS TIME. IV INTACT. PRO INTACT. CALL LIGHT WITHIN .
[2017-04-26 16:36] VITALS: BP 181/94
--- NOTE | 2017-04-26 18:50 | NUR ---
PATIENT IN BED WITH EYES CLOSED RESTING QUIETLY AT THIS TIME. IV INTACT. CALL LIGHT WITHIN REACH.
[2017-04-26 20:00] VITALS: BP 167/88
[2017-04-27] VITALS: BP 166/86
[2017-04-27 04:00] VITALS: BP 153/90
--- NOTE | 2017-04-27 07:00 | NUR ---
REPORT RECEIVED, ASSUMED CARE OF PT. RESTING WITH EYES SHUT, EASILY AROUSED. R PORT INFUSING FLUIDS ORDERED, DRSG C/D/I, SWAB CAPS IN PLACE. PRO CATHETER IN PLACE, PATENT, DRAINING, SECURED TO LEG WITH STAT-LOCK. NO NEEDS VOICED AT THIS TIME, BED IN LOWEST POSITION, SIDE RAILS UP X 2, CALL LIGHT WITHIN REACH.
[2017-04-27 08:31] VITALS: BP 168/90
[2017-04-27 12:43] VITALS: BP 185/87
--- NOTE | 2017-04-27 13:34 | NUR ---
NUTRITION F/U CHART REVIEWED. PT ON REG DIET. POOR PO INTAKE. WILL CONTINUE TO PROVIDE DIET, HONOR FOOD PREFERENCES. RD FOLLOWING
[2017-04-27 16:27] VITALS: BP 164/78
--- NOTE | 2017-04-27 19:25 | NUR ---
RECIEVED SHIFT REPORT. PT IS LYING IN BED. ALERT AND ORIENTED AND ABLE TO VERBALIZE NEEDS. IV IS PATENT AND FLUIDS ARE RUNNING PER ORDER. PRO IS DRAINING URINE BY GRAVITY. PT IS AMBULATORY WITH ASSISTANCE. PT STATES PAIN IS 2/10. NO NEEDS ARE VERBALIZED AT THIS TIME. WILL CONTINUE TO MONITOR. SIDE RAILS ARE UP X 2. BED IS IN LOWEST POSITION. CALL LIGHT IS WITHIN REACH.
[2017-04-27 20:00] VITALS: BP 153/86
--- NOTE | 2017-04-27 20:22 | NUR ---
SHIFT ASSESSMENT COMPLETED. NIGHT MEDS GIVEN WITH NO PROBLEMS. NO NEEDS ARE VOICED. WILL MONITOR. SIDE RAILS X 2. BED LOW. CALL LIGHT IN REACH.
[2017-04-28] VITALS: BP 157/87
[2017-04-28 04:00] VITALS: BP 153/86
--- NOTE | 2017-04-28 07:10 | NUR ---
REPORT RECEIVED, ASSUMED CARE OF PT. RESTING WITH EYES SHUT, EASILY AROUSED. R PORT INFUSING ORDERED, DRSG C/D/I. PRO CATHETER IN PLACE, SECURED TO LEG WITH STAT-LOCK. NO NEEDS VOICED AT THIS TIME. BED IN LOWEST POSITION, SIDE RAILS UP X2, CALL LIGHT WITHIN REACH.
[2017-04-28 08:40] VITALS: BP 160/80
[2017-04-28 11:50] VITALS: BP 169/73
[2017-04-28 16:11] VITALS: BP 151/87
--- NOTE | 2017-04-28 19:25 | NUR ---
RECIEVED SHIFT REPORT. PT IS LYING IN BED. ALERT AND ORIENTED AND ABLE TO VERBALIZE NEEDS. IV IS PATENT AND FLUIDS ARE RUNNING PER ORDER. PRO IS DRAINING URINE BY GRAVITY. PT IS AMBULATORY WITH ASSISTANCE. PT NEEDS INSTRUCTION TO TURN EVERY 2 HOURS TO STAY OFF HER BUTTOCKS. PT REFUSES TO DO SO. PT STATES PAIN IS 2/10. SCD'S OFF PER PT REQUEST. NO NEEDS ARE VERBALIZED AT THIS TIME. WILL CONTINUE TO MONITOR. SIDE RAILS X 2. BED LOW. CALL LIGHT IN REACH.
[2017-04-28 20:00] VITALS: BP 161/91
--- NOTE | 2017-04-28 20:18 | NUR ---
SHIFT ASSESSMENT COMPLETED. NIGHT MEDS GIVEN WITH NO PROBLEMS. NO NEEDS ARE VOICED. WILL MONITOR. SIDE RAILS X 2. BED LOW. CALL LIGHT IN REACH.
[2017-04-29] VITALS: BP 184/85
[2017-04-29 04:00] VITALS: BP 172/93
--- NOTE | 2017-04-29 08:31 | NUR ---
PT AOX4 RESP EVEN AND NONLABORED PT DENIES NEEDS AT THIS TIME IV TO RIGHT PORT PATENT AND INTACT AT THIS TIME SRX2 BED AT LOWEST SETTING CALL LIGHT WITHIN REACH WILL CONTINUE TO MONITOR
[2017-04-29 08:33] VITALS: BP 163/94
[2017-04-29 12:27] VITALS: BP 175/90
[2017-04-29 17:23] VITALS: BP 189/95
--- NOTE | 2017-04-29 19:20 | NUR ---
RECIEVED SHIFT REPORT. PT IS LYING IN BED. ALERT AND ORIENTED AND ABLE TO VERBALIZE NEEDS. IV IS PATENT AND FLUIDS ARE RUNNING PER ORDER. PRO IS DRAINING URINE BY GRAVITY. PT IS AMBULATORY WITH ASSISTANCE. PT NEEDS ENCOURAGEMENT TO TURN IN BED. SCD'S OFF PER PT REQUEST. PT STATES PAIN IS 2/10. NO NEEDS ARE VERBALIZED AT THIS TIME. WILL CONTINUE TO MONITOR. SIDE RAILS ARE UP X 2. BED IS IN LOWEST POSITION. CALL LIGHT IS WITHIN REACH.
[2017-04-29 20:00] VITALS: BP 153/86
--- NOTE | 2017-04-29 20:00 | NUR ---
SHIFT ASSESSMENT COMPLETED. NIGHT MEDS GIVEN WITH NO PROBLEMS. PT C/O PAIN 08/15. ADMINISTERED PRESCRIBED PRN ULTRAM PER ORDER. DENIES FURTHER NEEDS. WILL MONITOR. SIDE RAIL X 2. BED LOW. CALL LIGHT IN REACH.
[2017-04-30] VITALS: BP 144/84
[2017-04-30 04:00] VITALS: BP 150/89
--- NOTE | 2017-04-30 07:00 | NUR ---
REPORT RECEIVED FROM OFF GOING NURSE. SEE FLOW SHEET FOR ASSESSMENT. WHENEVER WALKED IN PTS ROOM, PT IN BED LYING ON BACK. VERY FOUL SMELL COMING FROM ROOM. ASKED WHENEVER THE LAST TIME SHE HAD A SHOWER WAS AND SHE SAID THAT SHE DIDNT KNOW BUT SHE DOSNT TAKE SHOWERS. I ASKED IF WE COULD GIVE HER A BED BATH AND PT ANSWERS BECAME SHORT AND COULD SENSE AGGITATION. "NO AND I DONT WANT ONE.". WHENEVER DOING ASSESSMENT, PT WOULD NOT LET ME LOOK AT HER BOTTOM AT FIRST. WHENEVER I ASKED WHY, SHE STATED "BECAUSE I DONT WANT TO". AFTER TALKING TO HER FOR A FEW MINUTES, I WAS ABLE TO CONVICE HER TO TURN BRIEFLY AND LOOK. I WAS ABLE TO SEE HALF OF HER BOTTOM WHICH WAS PINK AND THE BED PAD WAS WET AND SHE TURNED BACK OVER AND REFUSED TO LET ME TURN HER THE REST OF THE WAY. PT BREATHING NORMAL AND UNLABORED. CALL LIGHT INR EACH. WILL CONT POC
[2017-04-30 08:09] VITALS: BP 149/83
--- NOTE | 2017-04-30 10:43 | NUR ---
CM spoke with Dr Puentes and Dr Jung about patient and discharge planning needs. Dr Jung wanted to talk to patients son about his mothers care and outcomes. Nhung (pt son) contacted by cm and given dr jung's number for him to contact MD per request. Nhung took the number and stated that he would call. CM will continue to follow and assist with discharge planning needs. Nhung Diaz (son) [phone]
--- NOTE | 2017-04-30 11:37 | NUR ---
Wound care: Noted from nursing documentation that pt has developed blanchable redness on her buttocks. She has been refusing to turn/reposition and also bathe. Went in room with primary RN Gene to discuss the importance of staying on top of skin care issues. She refused to let us assess her skin, refused to turn/reposition, refused to allow me to place a protection dressing on her bottom. She did not want a shower nor a bed bath. We were then dismissed from the room. Wound care will be available as needed if pt decides to allow.
--- NOTE | 2017-04-30 12:00 | NUR ---
PT REMAINS TO REFUSE ADL'S FROM STAFF. BREATHING NORMAL AND UNLABORED. CALL LIGHT IN REACH. WILL CONT POC
[2017-04-30 12:28] VITALS: BP 168/87
[2017-04-30 15:47] VITALS: BP 163/84
--- NOTE | 2017-04-30 18:45 | NUR ---
REPORT GIVEN TO OFF GOING NURSE. PT BREATHING NORMAL AND UNALBROED. CALL LIGHT IN REACH. WILL CONT POC.
[2017-04-30 20:00] VITALS: BP 157/85
--- NOTE | 2017-04-30 20:00 | NUR ---
PRN ULTRAM ADMINISTERED AT THIS TIME FOR PAIN. PT STATED PAIN IS IN LOWER BACK. ENCOURAGED AND OFFERED TO ASSIST PT OOB OR TO REPOSITION IN BED TO HELP RELIEVE SOME DISCOMFORT, PT REFUSED STATED "I DO NOT WANT TO MOVE" CALL LIGHT IN REACH, WILL CONTINUE TO MONITOR.
--- NOTE | 2017-05-01 00:48 | NUR ---
PT RESTING QUIETLY. RESPIRATIONS EQUAL AND UNLABORED. DENIES ANY NEEDS AT THIS TIME. WILL CONTINUE TO MONITOR.
[2017-05-01 04:00] VITALS: BP 192/82
[2017-05-01 08:38] VITALS: BP 165/85
--- NOTE | 2017-05-01 11:42 | NUR ---
HOSPICE REFERRAL MADE PER DR MOHAN. CALL MADE TO
--- NOTE | 2017-05-01 13:36 | NUR ---
[facility] IN ROOM. PATIENT KICKED NURSE OUT AND WANTS TO GO HOME WITH HOME HEALTH. PATIENT IS CURRENT WITH [facility] SHE WILL BE DRIVEN HOME VIA EMS KAMERON CALLED AND EXPLAINED THE SITUATION. FELIBERTO CALLED AND PAGED DR MOHAN AND NEVER RECEIVED A CALL BACK FROM HIM. FELIBERTO ALSO CALLED [facility] AND ASKED FOR A ONLINE ACTIVIST TO GO OUT AND SEE PATIENT. FELIBERTO WILL CONTINUE TO FOLLOW AND ASSIST WITH DISCHARGE PLANNING NEEDS
== END 2017-05-01 14:00 | disposition home health service (06) | DRG 690 ==
LOC: D.ER 10:41 → D.MS 17:30
PROVIDERS: Nurse Practitioner Family; ADMIT Legal Medicine
PROC: 0T9B70Z Drainage of Bladder with Drainage Device, Via Natural or Artificial Opening (ICD-10-PCS; principal; 2017-04-02)
DX: N39.0 Urinary tract infection, site not specified (principal); N17.9 Acute kidney failure, unspecified; I82.441 Acute embolism and thrombosis of right tibial vein; I82.411 Acute embolism and thrombosis of right femoral vein; C53.1 Malignant neoplasm of exocervix; R53.1 Weakness; D63.8 Anemia in other chronic diseases classified elsewhere; R63.0 Anorexia; Z68.23 Body mass index [BMI] 23.0-23.9, adult; N31.2 Flaccid neuropathic bladder, not elsewhere classified; M25.551 Pain in right hip

== ENCOUNTER 2017-06-01 10:38 | Inpatient (IN) | payer MEDICARE ==
[~2017-06-01] VITALS: Ht 160 cm; Wt 50.0 kg
[2017-06-01 13:11] LABS: CREATININE - SERUM 8.2 mg/dL (0.6-1.3); POTASSIUM - SERUM 7.5 mmol/L (3.5-5.1)
[2017-06-01 13:12] LABS: ALBUMIN 2.2 g/dL (3.4-5.0); ANION GAP 30.4 mmol/L (8-16); BILIRUBIN - TOTAL 0.55 mg/dL (0.2-1.3); CALCIUM 9.7 mg/dL (8.5-10.1); CARBON DIOXIDE 15.1 mmol/L (21.0-32.0); PROTEIN - SERUM 7.5 g/dL (6.4-8.2); TROPONIN-I 0.385 ng/mL (0.000-0.060)
[2017-06-01 13:15] LABS: APTT 31.7 SECONDS (22.8-39.4); INR 1.3 (0.85-1.17); PROTIME 16.1 SECONDS (11.6-15.0)
[2017-06-01 13:24] LABS: HEMATOCRIT 28.8 % (36.0-48.0); HEMOGLOBIN 8.4 g/dL (12-16); MCH 26.4 pg (26.0-34.0); MCHC 29.2 g/dL (31.0-37.0); MCV 90.6 fL (80.0-100.0); MEAN PLATELET VOLUME 9.8 fL (7.4-10.4); PLATELET COUNT 141 10x3/uL (130-400); RBC 3.18 10x6/uL (4.00-5.40); WBC 55.5 10x3/uL (4.8-10.8)
[2017-06-01 13:40] LABS: LYMPHOCYTES 4 % (15-50); MONOCYTES 3 % (2-11); NEUTROPHILS 71 % (40-80); PLATELET ESTIMATE NORMAL
[2017-06-01 13:41] LABS: ROULEAUX OCC
[2017-06-01 13:59] LABS: APPEARANCE TURBID (CLEAR); BACTERIA MODERATE /hpf (NONE SEEN); BILIRUBIN NEGATIVE (NEGATIVE); COLOR YELLOW (YELLOW); EPITHELIAL CELLS OCC /hpf (0-5); GLUCOSE NEGATIVE (NEGATIVE); KETONE SMALL mg/dL (NEGATIVE); MUCUS <1+ /lpf (NONE SEEN); NITRITE NEGATIVE (NEGATIVE); PROTEIN 3+ mg/dL (NEGATIVE); UROBILINOGEN NORMAL (NORMAL); WHITE CELLS - URINE >50 /hpf (0-5)
[2017-06-01 15:35] VITALS: BP 83/48; Ht 160 cm; Wt 50.0 kg
--- NOTE | 2017-06-01 15:48 | NUR ---
pt seen and assessed. fingers on both hands dark mottled from mid knuckles to fingertips-unable to assess pulse ox-mouth and lips very dry and cracked-infusaport noted right chest with biopatch and occlusive dressing in place. right lower leg 1+ edema and left lower leg 3+ edema. heels very dry but jenelle-toes on bilat feet dark-turned to side-buttock noted to have approx 5 in x 3 in non blanching pink area with approx quarter size stage 3 in middle above coccyx. mediplex heart shape dressing applied. son (Nhung Diaz [phone]) at bedside, requesting a DNR status. oxygen at 2L per nc. lung sounds diminished bilat with hypoactive bowel sounds. call light in reach
== END 2017-06-01 18:25 | disposition hospice, inpatient (51) | DRG 871 ==
LOC: D.ER 10:38 → D.MS 13:58
PROVIDERS: Emergency Medicine; Physician Assistant; ADMIT Legal Medicine
DX: A41.9 Sepsis, unspecified organism (principal); N17.0 Acute kidney failure with tubular necrosis; E87.2 Acidosis; Z66 Do not resuscitate; N30.90 Cystitis, unspecified without hematuria; C53.9 Malignant neoplasm of cervix uteri, unspecified; E87.5 Hyperkalemia

== ENCOUNTER 2017-06-01 17:25 | Inpatient (IN) | payer OTHER ==
[~2017-06-01] VITALS: Ht 160 cm; Wt 50.0 kg
[2017-06-01 18:46] VITALS: BP 83/48; BMI 19.5
--- NOTE | 2017-06-01 19:40 | NUR ---
PT RESTING QUIETLY WITH EYES CLOSED. RESPIRATIONS EQUAL AND UNLABORED. 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 PT IS DNR WITH [facility]. FAMILY AT BEDSIDE AT THIS TIME. PRO TO BEDSIDE. WILL CONTINUE TO MONITOR.
[2017-06-01 20:00] VITALS: BP 76/49
--- NOTE | 2017-06-02 03:07 | NUR ---
SPOKE WITH DR KIMBERLEE MOTTA'S NURSE, PT HAS NO PULSE OR AUDIBLE HEARTBEAT. STATED SHE WILL CONTACT KIMBERLEE. WILL BE HERE WITHIN AN HOUR OR SO.
--- NOTE | 2017-06-02 07:00 | NUR ---
REPORT RECIEVED, HOSPICE NURSE HERE. AWAITING SON TO MAKE DECISION FOR HOME.
--- NOTE | 2017-06-02 12:22 | NUR ---
CHUCK WITH [facility] HERE TO GET PATIENT VIA STRETCHER. SON TOOK PATIENTS PERSONAL BELONGINGS.
[2017-06-10 09:58] VITALS: Ht 160 cm; Wt 50.0 kg
== END 2017-06-02 12:24 | DRG 951 ==
LOC: D.MS 17:25
PROVIDERS: ADMIT Legal Medicine
DX: Z51.5 Encounter for palliative care (principal)